=== PATIENT | male | born 1955 | race Caucasian/White ===

== ENCOUNTER 2017-05-21 06:28 | Inpatient (IN) | payer MEDICARE ==
[2017-05-21] VITALS (11 sets, daily range): BP systolic 125–171; BP diastolic 65–93
[~2017-05-21] VITALS: Ht 190.5 cm; Wt 73.5 kg
[2017-05-21] MEDS ORDERED: NOHOMEMEDICATIONS (06:40)
[2017-05-21 06:57] LABS: HEMOGLOBIN 7.6 gm/dL (14.0-18.0); MCH 28.2 pg (26.0-34.0); MPV 6.3 fl. (7.2-11.1)
[2017-05-21 06:59] LABS: HEMATOCRIT 24.5 % (42.0-52.0); MCHC 30.9 g/dL (28.0-37.0); MCV 91.5 fL (80.0-100.0); NUCLEATED RBCS 0 /100WBC; PLATELET COUNT* 238 thou/uL (150-400); RBC 2.67 mil/uL (4.50-6.00); RDW-CV 17.7 % (10.5-14.5); WBC 1.9 thou/uL (4.0-11.0)
[2017-05-21 07:12] LABS: ANION GAP 11 mmol/L (7-16); BUN 7 mg/dL (7-18); CALCIUM 8.1 mg/dL (8.5-10.1); CHLORIDE 105 mmol/L (98-107); CO2 25 mmol/L (21-32); CREATININE 0.9 mg/dL (0.6-1.3); GLUCOSE 91 mg/dL (70-99); POTASSIUM 4.2 mmol/L (3.5-5.1); SODIUM 141 mmol/L (136-145)
[2017-05-21 07:16] LABS: ALBUMIN 3.1 g/dL (3.4-5.0); ALKALINE PHOSPHATASE 63 U/L (46-116); LIPASE 420 U/L (73-393); MAGNESIUM 2.1 mg/dL (1.8-2.4); NT-PRO BRAIN NAT PEPTIDE 105 pg/mL (<300); SGOT 14 U/L (15-37); SGPT 16 U/L (30-65); TOTAL BILIRUBIN 0.3 mg/dL (<0.1-1.0); TOTAL PROTEIN 5.9 g/dL (6.4-8.2); TROPONIN-I LEVEL <0.06 ng/mL (<0.06)
[2017-05-21 07:25] LABS: URINE BILIRUBIN NEGATIVE (Negative); URINE BLOOD NEGATIVE (Negative); URINE CLARITY CLEAR; URINE COLOR YELLOW; URINE GLUCOSE-RANDOM NEGATIVE (Negative); URINE KETONES NEGATIVE (Negative); URINE LEUKOCYTES-REFLEX NEGATIVE (Negative); URINE NITRITE-REFLEX NEGATIVE (Negative); URINE PROTEIN NEGATIVE (Negative); URINE SPECIFIC GRAVITY <= 1.005 (1.005-1.030); URINE UROBILINOGEN 0.2 E.U./dl (0.2-1.0)
[2017-05-21 07:36] LABS: ABSOLUTE EOSINOPHILS 0.1 thou/uL (0.0-0.7); ABSOLUTE LYMPHOCYTES 0.5 thou/uL (0.8-5.3); ABSOLUTE MONOCYTES 0.1 thou/uL (0.0-1.2); ABSOLUTE NEUTROPHILS 1.3 thou/uL (1.6-8.1); PLATELET ESTIMATE ADEQUATE
[2017-05-21 07:37] LABS: ANISOCYTOSIS 1+; HYPOCHROMASIA 1+; OVALOCYTES 1+; POIKILOCYTOSIS 1+
--- NOTE | 2017-05-21 07:45 | NUR ---
PLACED ON PROTECTIVE/NEUTROPENIC PRECAUTIONS.
[2017-05-21 11:27] LABS: AMP/METHAMP Negative (Negative); BARBITURATES Negative (Negative); BENZODIAZEPINES Negative (Negative); COCAINE Negative (Negative); METHADONE Negative (Negative); OPIATES Negative (Negative); PCP Negative (Negative); THC Negative (Negative)
--- NOTE | 2017-05-21 11:27 | NUR ---
SHASHI CONNO[facility] [phone]
[2017-05-21 11:46] LABS: AMMONIA < 10 umol/L (11-32); CALCIUM 7.8 mg/dL (8.5-10.1); MAGNESIUM 1.9 mg/dL (1.8-2.4); PHOSPHORUS* 3.3 mg/dL (2.5-4.9)
--- NOTE | 2017-05-21 14:30 | 2DMMODE ---
[place] [address] 2 D/M-MODE ECHOCARDIOGRAM Name: TATIANA ROCA Room: [address] IN [facility]#: [id number] Admission: 05/21/17 Attend Phys: Hugh Ferraro, Discharge: Date of : 59 Date of Service: 05/21/17 1429 Report #: [id number] THIS REPORT FOR: //name// APPROVED REPORT Study performed: 05/21/2017 11:27:28 EXAM: Comprehensive 2D, Doppler, and color-flow Echocardiogram Patient Location: In-Patient Room #: [facility] Status: routine BSA: 2.07 HR: 90 bpm BP: 147/77 mmHg Rhythm: NSR Other Information Study Quality: Good Indications CVA/TIA Echo Enhancing Agent Indication: Rule out Shunt Agent(s) / Amount(s) Used: Agitated Saline 10 cc 2D Dimensions LVEF(%): 64.70 (>50%) IVSd: 10.51 (7-11mm) LVOT Diam: 25.06 (18-24mm) LVDd: 48.04 mm PWd: 9.46 (7-11mm) Ascending Ao: 34.99 (22-36mm) LVDs: 31.03 (25-40mm) Aortic Root: 35.81 mm Tan's LVEF: 64.70 % Volumes Left Atrial Volume (Systole) LA ESV Index: 18.70 mL/m2 Aortic Valve AoV Peak Guilherme.: 1.50 m/s AO Peak Gr.: 8.97 mmHg LVOT Max P.90 mmHg AO Mean Gr.: 4.86 mmHg LVOT Mean P.88 mmHg LVOT Max V: 0.99 m/s AO V2 VTI: 27.10 cm LVOT Mean V: 0.63 m/[place] [address] 2 D/M-MODE ECHOCARDIOGRAM Name: TATIANA ROCA Room: [address] IN [facility]#: [id number] Admission: 05/21/17 Attend Phys: Hugh Ferraro, Discharge: Date of : 59 Date of Service: 05/21/17 1429 Report #: [id number] ZACHERY (VTI): 3.74 cm2 LVOT V1 VTI: 20.55 cm Mitral Valve E/A Ratio: 0.85 MV Decel. Time: 178.19 ms MV E Max Guilherme.: 0.82 m/s MV PHT: 51.67 ms MVA (PHT): 4.26 cm2 TDI E/Lateral E': 6.83 E/Medial E': 5.13 Medial E' Guilherme.: 0.16 m/s Lateral E' Guilherme.: 0.12 m/s Pulmonary Valve PV Peak Guilherme.: 0.90 m/s PV Peak Gr.: 3.27 mmHg Left Ventricle The left ventricle is normal size. There is normal LV segmental wall motion. There is normal left ventricular wall thickness. Left ventricular systolic function is normal. The left ventricular ejection fraction is within the normal range. LVEF is 55-60%. Grade I - abnormal relaxation pattern. Right Ventricle The right ventricle is normal size. The right ventricular systolic function is normal. Atria The left atrium size is normal. Interatrial septum is intact without evidence of ASD or PFO. The right atrium size is normal. Aortic Valve The aortic valve is normal in structure. No aortic regurgitation is present. There is no aortic valvular stenosis. Mitral Valve The mitral valve is normal in structure. There is no mitral valve regurgitation noted. No evidence of mitral valve stenosis. Tricuspid Valve The tricuspid valve is normal in structure. Trace tricuspid regurgitation. Unable to assess PA pressure. Pulmonic Valve The pulmonary valve is normal in structure. [place] [address] 2 D/M-MODE ECHOCARDIOGRAM Name: TATIANA ROCA Room: [address] IN [facility]#: [id number] Admission: 05/21/17 Attend Phys: Hugh Ferraro, Discharge: Date of : 59 Date of Service: 05/21/17 1429 Report #: [id number] valvular regurgitation. Great Vessels The aortic root is normal in size. IVC is normal in size and collapses with >50% inspiration Pericardium There is no pericardial effusion. <Conclusion> LVEF is 55-60%. Interatrial septum is intact without evidence of ASD or PFO. <ELECTRONICALLY SIGNED> By: Noe Pena MD, [facility] 05/21/17 1429 1429 1429 Noe Pena MD, FAC /INF
--- NOTE | 2017-05-21 15:19 | EKG ---
[place] [address] ELECTROCARDIOGRAM REPORT Name: TATIANA ROCA Room: [address] ADM IN [facility]#: [id number] Admission: 05/21/17 Attend Phys: Hugh Ferraro MD Discharge: Date of : 59 Report #: [id number] THIS REPORT FOR: //name// [facility] ED Test Date: 2017-05-21 Test Time: 06:43:41 Pat Name: TATIANA ROCA Department: Room: [facility] Gender: M Cabinet Finisher: ZACH : 1955 Requested By: Zahira Baez Order Number: [id number] MD: Noe Pena Measurements Intervals Cardale Rate: 88 P: 51 VT: 185 QRS: -21 QRSD: 94 T: 6 QT: 375 QTc: 454 Interpretive Statements Sinus rhythm Borderline left axis deviation Baseline wander in lead(s) V5 No previous ECG available for comparison Electronically Signed On 05-21-2017 15:19:18 CDT by Noe Pena [email or web address] <ELECTRONICALLY SIGNED> By: Noe Pena MD, [facility] 05/21/17 1519 [phone] Noe Pena MD, [facility] /EPI
--- NOTE | 2017-05-21 16:43 | NUR ---
RECEIVED PT FROM ER. PT A/O X'S 4. PT DROWSY. NIH CHARTED. CIWA CHARTED 8. PRN ATIVAN ADMINISTERD. PT IMPULSIVE. PT TAKING OFF GOWN, MONITOR CORDS, TOOK OUT [address]. [address] FOR RESTRAINTS RECEIVED ORDER FOR 1:1. GROCERY SPECIALIST SITTING AT BEDSIDE. VSS. TEMP 99.0. 1ST DEGREE AV BLOCK. PT PLACED IN NEUTROPENIC PRECAUTIONS FOR WBC OF 1.9. SPOKE TO SON MOHSEN WHO EXPRESSED CONCERN FOR PT. EXPRESSED PT HAS HAD INSURANCE FOR MEDICATIONS HOWEVER NON-COMPLIANT. PT REPORTS PT IS SUPPOSED TO TAKE SEVERAL MEDICATIONS BUT DOES NOT AND IS UNAWARE OF NAMES OR PT'S PHARMACY.
--- NOTE | 2017-05-21 17:56 | NUR ---
PT INCONTINENT 3-4 TIMES URINE. PT HELPED TO BSC 1 TIME PT WEAK ON LEFT SIDE UP WITH 2. PT UNSTEADY. CIWAS CHARTED. SENT FOR RECORDS AT [facility] - HAVE NOT RECEIVED FAX. TELE PSYCH CONSULT NOT YET CALLED PT DROWSY, SPEECH IS SLURRED, WEAK, PT UNABLE TO KEEP EYES OPEN AND HOLD CONVERSATION. TECHNICAL MAINTENANCE TECHNICIAN IN ROOM. PT CONTINUES TO PICK AND CORDS.
[2017-05-22] VITALS (20 sets, daily range): BP systolic 132–188; BP diastolic 75–114
--- NOTE | 2017-05-22 02:44 | NUR ---
MITTEN PLACED ON RIGHT HAND AT 2200 DUE TO AGGRESSIVE TUGGING ON WYNNE CATHETER. MITTEN IS NOT TIED DOWN. PT'S IV IN RIGHT AC NOT IN PLACE, DC'D. NEW IV STARTED IN LEFT FOREARM, 20#, NO DIFFICULTY. IVF REMAIN INFUSING
[2017-05-22 03:55] LABS: ABSOLUTE EOSINOPHILS 0.1 thou/uL (0.0-0.7); ABSOLUTE LYMPHOCYTES 0.6 thou/uL (0.8-5.3); ABSOLUTE MONOCYTES 0.5 thou/uL (0.0-1.2); ABSOLUTE NEUTROPHILS 2.9 thou/uL (1.6-8.1); BASOPHILS 0.9 %; EOSINOPHILS 2.8 %; HEMATOCRIT 26.9 % (42.0-52.0); HEMOGLOBIN 8.2 gm/dL (14.0-18.0); LYMPHOCYTES 13.8 %; MCH 27.8 pg (26.0-34.0); MCHC 30.6 g/dL (28.0-37.0); MCV 90.7 fL (80.0-100.0); MONOCYTES 12.8 %; MPV 6.7 fl. (7.2-11.1); NUCLEATED RBCS 0 /100WBC; PLATELET COUNT* 266 thou/uL (150-400); POLYS 69.7 %; RBC 2.96 mil/uL (4.50-6.00); RDW-CV 17.9 % (10.5-14.5); WBC 4.2 thou/uL (4.0-11.0)
[2017-05-22 04:19] LABS: CALCIUM 8.5 mg/dL (8.5-10.1); CREATININE 0.9 mg/dL (0.6-1.3); POTASSIUM 3.4 mmol/L (3.5-5.1)
[2017-05-22 04:42] LABS: CHOLESTEROL 165 mg/dL (<200); HDL CHOLESTEROL 90 mg/dL (>40); LDL CHOLESTEROL 63 mg/dL (<100); TC:HDL 1.8 Ratio (Not establshd); TRIGLYCERIDE 62 mg/dL (<150); VLDL 12 mg/dL (<40)
[2017-05-22 04:47] LABS: SERUM ASSESSMENT Clear
--- NOTE | 2017-05-22 05:10 | NUR ---
PT. PROGRESSING TOWARDS GOALS. PT. HAS SLEPT WELL FOR 7 HOURS. GEODON GIVEN PER ONE TIME ORDER DUE TO COMBATIVENESS AND RESTLESSNESS BEGINNING SHIFT. REPEATEDLY TOLD THIS RN THAT HE WAS GETTING OUT OF BED AND GOING HOME. REMAINS DROWSY AT THIS TIME, THIS RN HAS BEEN AT BEDSIDE THROUGHOUT SHIFT. WILL CONTINUE TO MONITOR.
[2017-05-22 05:11] LABS: GLYCOHEMOGLOBIN (HGB A1C) 4.3 % (4.8-5.6)
[2017-05-22 05:35] LABS: MAGNESIUM 2.2 mg/dL (1.8-2.4); PHOSPHORUS* 3.9 mg/dL (2.5-4.9)
--- NOTE | 2017-05-22 10:15 | NUR ---
PT ADMITTIED YESTERDAY WITH POSSIBLE CVA, ALCOHOL ABUSE. PT CONFUSED AND AGITATED YESTERDAY. NO FAMILY HERE AT THIS TIME. CASE MGT WILL CONTINUE TO FOLLOW.
--- NOTE | 2017-05-22 10:19 | NUR ---
PT LETHARGIC THIS AM. PT IS NOT OPENING EYES. PT ABLE TO FOLLOW DIRECTIONS. PT MOVING RIGHT LEG, RIGHT ARM. 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 PT UNABLE TO MOVE LEFT LEG. NO RESPONSE TO SHARP PRICK TO LEFT LEG. NEUROLOGY CALLED AND RECEIVED ORDER FOR MRI NON-CONTRAST OF BRAIN IF OKAY WITH DR ARANGO. DR KEBEDE CALLED AND OKAY WITH MRI. POTASSIUM BEING REPLACED. WILL CONTINUE PLAN OF CARE.
--- NOTE | 2017-05-22 15:03 | NUR ---
THIS AM LEFT A MESSAGE WITH PT'S SON MOHSEN TO FILL OUT MRI QUESTIONAIR. NEURO SAW PT PRIOR TO SON RETURNING CALL- RECEIVED ORDER FOR CT FOR STROKE AND TO OBTAIN MRI WHEN SON RETURNS PHONE CALL. SON MOHSEN CAME TO VISIT PT AND QUESTIONAIRE FILLED OUT. PT CONTINUES TO BE LETHARGIC, NOT OPENING EYES, MOVING RIGHT ARM AND LEG, NO MOVEMENT OR RESPONSE TO PAIN IN LEFT LEG. NEUROLOGY AWARE OF CURRENT CONDITION. WILL CONTINUE PLAN OF CARE. POTASSIUM REPLACED AND CURRENTLY 4.2. PT SCHEDULED FOR VIDEO SWALLOW TODAY. RE-SCHEDULED FOR 05/23 PT LETHARGIC AND UNABLE TO DO TEST. ST NOTIFIED. PT HAS NOT HAD PO MEDICATIONS DUE TO NPO PER ST, AND PT'S LETHARGIC.
--- NOTE | 2017-05-22 16:26 | NUR ---
NEUROLOGY NOTIFIED OF CT. RECEIVED ORDERS TO AWAIT MRI RESULTS. SON HIMA CAME TO VISIT. TO HIS KNOWLEDGE PT DOES NOT HAVE PCP.
--- NOTE | 2017-05-22 17:56 | NUR ---
MRI RESULTS CALLED TO DR RAMIREZ. PER DR RAMIREZ NO ADDITIONAL INTEREVENTIONS AT THIS TIME. DR RAMIREZ TO CALL FAMILY WITH UPDATE.
--- NOTE | 2017-05-22 19:25 | CON ---
[address] [address] CONSULTATION Name: TATIANA ROCA Room: [address] IN [facility]#: [id number] Admission: 05/21/17 Attend Phys: Hugh Ferraro MD Discharge: Date of : 59 Report #: [id number] THIS REPORT FOR: //name// CC: Hugh Ferraro [facility] physician/PCP HISTORY OF PRESENT ILLNESS: This is a 61-year-old male patient who was evaluated by me because this patient was noticed to be weak on the left side. We are trying to reach the family and we have not been able to reach the family. History is somewhat confusing, but as I understand from the nurses, this patient had a stroke in the past which affected the left side of the body, but they indicated that the patient was still able to move the left side, but then did notice that the patient has not been able to move the left side at all. The patient is very drowsy and it is very difficult to evaluate this patient. There is also a question whether the weakness is on the left side or the right side from the record. REVIEW OF SYSTEMS: From the record and it would look like this patient has been feeling weak for 2 weeks. The Emergency Room record indicates that he had some weakness on the left side where other records indicate weakness on the right side. The patient has by records history of atrial fibrillation as well as congestive heart failure. We are trying to get hold of this patient's son and we have been unable to do that. I talked to the night nurses and I also talked to the day nurses and this patient's review of systems is also positive for alcoholism that is the patient was withdrawing. He needed some sedative last night. I carried out 14-point review of system and the patient's 14-point review of system is positive and contributory only for the above thing. PAST MEDICAL HISTORY: Positive for CVA, alcoholism. FAMILY HISTORY: Unavailable. SOCIAL HISTORY: He has a history of smoking and drinking. PHYSICAL EXAMINATION: NEUROLOGIC: On my examination, this patient did not do anything. He barely responds to painful or verbal stimuli. According to the nurses, he was not moving the left side. On my examination, he did not move anything. LUNGS: His respiration looks okay. VITAL SIGNS: Indicate blood pressure of 170/89, respirations 12, pulse is 101, temperature is 98.3. IMPRESSION: This patient is very difficult to evaluate. He does have a prior history of cerebrovascular accident and I do not know whether he had another cerebrovascular accident or not. We wanted to do an MRI in this patient, but we cannot get hold of the patient's son to fill up the MRI questioner. Therefore, we could not do the MRI in this patient. I thought about [place] [address] CONSULTATION Name: TATIANA ROCA Room: [address] IN [facility]#: [id number] Admission: 05/21/17 Attend Phys: Hugh Ferraro MD Discharge: Date of : 59 Report #: [id number] protocol to see if any stroke is there and is salvageable. He did have another CT angiogram yesterday, but his GFR was normal and therefore, I went ahead and did a CT stroke protocol which showed old stroke and some stenosis, but nothing which is salvageable. I am not even sure that is the etiology of the patient's symptoms. RECOMMENDATIONS: 1. We will go ahead and give him some fluids. 2. We will continue to get hold of the patient's son. 3. We might do an MRI if we can get hold of the patient's son. It will be desirable to do the MRI in this patient. If I am able to talk to the patient's son, I will dictate an addendum to this. I have not been able to reach this patient's son or any relative. I have asked the nurses to contact them. But I have reviewed this patient's records and the patient had another stroke. He has bilateral strokes in the frontal area and the situation is difficult. We will like family to decide what further treatment is but I need better history to determine the further treatment in this patient. This patient was never a candidate for any intervention because his time of onset is not clear.furthermore perfusion did not demonstrate any Pneumbra or anything for which thrombectomy can be done. Therefore he was neither a candidate for TPA nor for any intervention. We will try to continue to make attempts to contact some family member. Thank you very much for this referral. <ELECTRONICALLY SIGNED> By: Cam Vu MD 05/22/171924 1401 18Cam Vu MD /susana
[2017-05-23] VITALS (10 sets, daily range): BP systolic 130–165; BP diastolic 80–108
[2017-05-23 03:49] LABS: ABSOLUTE LYMPHOCYTES 0.6 thou/uL (0.8-5.3); ABSOLUTE MONOCYTES 0.4 thou/uL (0.0-1.2); ABSOLUTE NEUTROPHILS 2.3 thou/uL (1.6-8.1); BASOPHILS 0.7 %; EOSINOPHILS 1.4 %; HEMATOCRIT 31.1 % (42.0-52.0); HEMOGLOBIN 9.5 gm/dL (14.0-18.0); LYMPHOCYTES 17.2 %; MCH 27.3 pg (26.0-34.0); MCHC 30.4 g/dL (28.0-37.0); MCV 89.7 fL (80.0-100.0); MONOCYTES 11.8 %; MPV 6.8 fl. (7.2-11.1); NUCLEATED RBCS 0 /100WBC; PLATELET COUNT* 304 thou/uL (150-400); POLYS 68.9 %; RBC 3.47 mil/uL (4.50-6.00); RDW-CV 18.2 % (10.5-14.5); WBC 3.3 thou/uL (4.0-11.0)
[2017-05-23 04:19] LABS: ALBUMIN 3.4 g/dL (3.4-5.0); CALCIUM 8.3 mg/dL (8.5-10.1); CREATININE 0.9 mg/dL (0.6-1.3); PHOSPHORUS* 4.2 mg/dL (2.5-4.9); POTASSIUM 3.4 mmol/L (3.5-5.1); TOTAL BILIRUBIN 0.9 mg/dL (<0.1-1.0); TOTAL PROTEIN 6.4 g/dL (6.4-8.2)
--- NOTE | 2017-05-23 06:58 | NUR ---
PATIENT NOT PROGRESSING TOWARDS GOALS. SLEPT MOST OF THE NIGHT. REMAINS WITH MITTEN ON RIGHT HAND. PT UNABLE TO KEEP EYES OPEN. DOES ANSWER QUESTIONS APPROPRIATE VERY DIFFICULT TO UNDERSTANDS SPEAKS VERY LOW. GIVE TIME TO RESPOND. PT STILL DOES NOT HAVE MOVEMENT ON LEFT ARM OR LEG. RIGHT ARM DRIFTS. CIWA SCORE LOW. PT BLOOD PRESSURE ELEVATED. HAS SWALLOW STUDY TODAY. HOPING TO START HIM ON HIS BP MEDICAITONS. URINE OUPUT ADEQUATE. PT HAD A BRIEF MOMENT WHERE HIS HR GOT UP TO THE 150'S BUT DID NOT SUSTAIN. WILL CONTINUE TO MONITOR CLOSELY.
--- NOTE | 2017-05-23 11:29 | NUR ---
RECEIVED REPORT FROM ABRAM, RN. ASSESSMENT CHARTED. AFEBRILE. NIH IS 13. PT LETHARGIC. SPEECH SWALLOW EVAL TODAY. POTASSIUM REPLACED. FLUIDS INFUSING. OKAY TO GO TO TELE IF OKAY WITH DR RAMIREZ. WILL CONTINUE TO MONITOR.
[2017-05-24] VITALS (11 sets, daily range): BP systolic 16–162; BP diastolic 48–100
--- NOTE | 2017-05-24 10:45 | NUR ---
Per nursing, pt is more alert today. Tried talking to pt, he answered a few y/n questions but unable to carry on a conversation. No family here at this time.
--- NOTE | 2017-05-24 19:12 | NUR ---
RECIEVED REPORT FROM FRANK WHITFIELD IN ICU @ 1837- PT TRANSFERED TO ROOM 224 VIA BED PER TECH, NOTED TO ARRIVE AT 1900- VSS AT 98.5 18 138/77 68 985 ON 2L- IV NOTED TO LEFT HAND INTACT, IVF RESTARTED ADN INFUSING PRESCIBED-REHABILITATION CLERK PLACED, TRACING SR- REPORT GIVEN TO FRANK ANDERSEN- ALL NEEDS MET AT THIS TIME-WCTM
[2017-05-25] VITALS: BP 114/64
[2017-05-25 04:00] VITALS: BP 161/78
--- NOTE | 2017-05-25 04:29 | NUR ---
A&O X4 CALM COOPERITVE. SR ON THE MONITOR. MAX ASSIST TO CHAIR. PT ON PUREED DIET. CURRETLY TAKES PILLS CRUSHED. VITALS WNL. SEE MAR. SEE CHART. FALL PRECAUTIONS IN PLACE. HOURLY ROUNDING FOR SAFETY.
[2017-05-25 11:33] VITALS: BP 135/87
--- NOTE | 2017-05-25 13:07 | TEE ---
[place] [address] TRANSESOPHAGEAL ECHOCARDIOGRAM Name: TATIANA ROCA Room: [address] IN [facility]#: [id number] Admission: 05/21/17 Attend Phys: Hugh Ferraro, Discharge: Date of : 59 Date of Service: 05/25/17 1307 Report #: [id number] THIS REPORT FOR: //name// APPROVED REPORT Study performed: 05/24/2017 15:22:44 EXAM: Transesophageal Echocardiogram Patient Location: In-Patient Room #: 001 Status: routine BSA: 1.99 HR: 76 bpm BP: 130/73 mmHg Rhythm: NSR Other Information Study Quality: Good Indications CVA/TIA Echo Enhancing Agent Indication: Rule out Shunt Agent(s) / Amount(s) Used: Agitated Saline 20 cc Procedure After obtaining informed consent, patient underwent transesophageal echo in the Bedside. Type of Sedation : Conscious Sedation Sedation was administered by Evangelina Neumann. Sedation start time: 1529 Case end Time: 1546 Sedation was achieved intravenously with: Versed (5) Fentanyl (50) Transesophageal probe was inserted and advanced into esophagus without difficulty by Noe Pena MD, FACC. Echo enhancement indication: R/O Septal defect. Echo enhancement agent administered: Agitated Saline The NATHAN was performed without complications. Throughout the procedure, the blood pressure, pulse oximetry, cardiac rhythm, and rate were monitored. The patient tolerated the procedure without adverse effects. Recovery from conscious sedation was uneventful and [place] [address] TRANSESOPHAGEAL ECHOCARDIOGRAM Name: TATIANA ROCA Room: [address]#: [id number] Admission: 05/21/17 Attend Phys: Hugh Ferraro, Discharge: Date of : 59 Date of Service: 05/25/17 1307 Report #: [id number] Left Ventricle The left ventricle is normal size. There is normal LV segmental wall motion. There is normal left ventricular wall thickness. Left ventricular systolic function is normal. The left ventricular ejection fraction is within the normal range. LVEF is 60-65%. Right Ventricle The right ventricle is normal size. The right ventricular systolic function is normal. Atria No thrombus is visualized in the left atrium or appendage. The left atrium size is normal. Interatrial septum is intact without evidence of ASD or PFO. The right atrium size is normal. Aortic Valve The aortic valve is normal in structure. No aortic regurgitation is present. There is no aortic valvular stenosis. Mitral Valve systolic bowing of the anterior leaflet was noted but no evidence of prolapse Trace mitral regurgitation. No evidence of mitral valve stenosis. Tricuspid Valve The tricuspid valve is normal in structure. Trace tricuspid regurgitation. Pulmonic Valve The pulmonary valve is normal in structure. There is no pulmonic valvular regurgitation. Great Vessels The aortic root is normal in size. Pericardium There is no pericardial effusion. <Conclusion> LVEF is 60-65%. Interatrial septum is intact without evidence of [place] [address] TRANSESOPHAGEAL ECHOCARDIOGRAM Name: TATIANA ROCA Room: [address] IN [facility]#: [id number] Admission: 05/21/17 Attend Phys: Hugh Ferraro, Discharge: Date of : 59 Date of Service: 05/25/171306 Report #: [id number] No thrombus is visualized in the left atrium or appendage. The left atrium size is normal. <ELECTRONICALLY SIGNED> By: Noe Pena MD, FACC 05/25/171306 06 06 Noe Pena MD, FACC /INF
[2017-05-25 16:30] VITALS: BP 123/73
--- NOTE | 2017-05-25 17:07 | NUR ---
ASSUMED PT CARE AT 0700 PT IS ALERT AND ORIENTED X 4 PT HAS FACIAL DROOPING AND SLURRED SPEECH PT ANSWERS QUESTIONS AND FOLLOWS COMMANDS APPROPRIATELY, PT IS UP WITH MAX ASSIST X 2 TO CHAIR, PT HAS WYNNE, PT IS ON PUREED HONEY THICK LIQUIDS PT DIET HAD BEEN CHANGED TO NPO AND NOT CHANGED BACK CALLED DR EARL AFTER SPEAKING WITH SPEECH ABOUT PT DIET ORDERS AND OBTAINED ORDER, PT IS A Q 2 TURN, WILL CONTINUE TO MONITOR
--- NOTE | 2017-05-25 18:10 | NUR ---
RECIEVED CONSULT FOR POSSIBLE REHAB ADMISSION. CONSULT HAS BEEN ACKNOWLEDGED BY SUPERIOR COURT CLERK AND DR. WANG. PT WITH CVA. HAS BEEN CONFUSED AND UNABLE TO FOLLOW COMMANDS. NOW DOING A LITTLE BETTER WITH THERAPIES. WILL FOLLOW ALONG WITH PT TO SEE HOW HE PROGRESSES AND IF ABLE TO TOLERATE 3 HOURS OF THERAPY TO QUALIFY FOR ACUTE REHAB. THANK YOU FOR THIS REFERRAL.
[2017-05-25 20:00] VITALS: BP 139/75
[2017-05-26] VITALS (7 sets, daily range): BP systolic 95–157; BP diastolic 56–92
--- NOTE | 2017-05-26 02:56 | NUR ---
PT ALERT ORIENTED SLOW RESPONCE. NIH 6. CIWA 2. LEFT SIDE EFFECTED FROM CVA. L ARM CONTRACTED. L LEG WITH SOME RESISTANCE TO GRAVITY. PT ON PUREED HONEY THICK. TAKING PILLS CRUSHED APPLE SAUCE. TELEMETRY SHOWS SR. O2 AT 2 LITERS NC. WYNNE FOR RETENTION DRAINING DK YELLOW. DENIES PAIN. WILL CONTINUE TO MONITOR.
[2017-05-26 05:49] LABS: HEMATOCRIT 27.9 % (42.0-52.0); HEMOGLOBIN 8.9 gm/dL (14.0-18.0); MCH 27.5 pg (26.0-34.0); MCHC 31.7 g/dL (28.0-37.0); MCV 86.7 fL (80.0-100.0); MPV 7.1 fl. (7.2-11.1); RBC 3.22 mil/uL (4.50-6.00); RDW-CV 18.1 % (10.5-14.5); WBC 2.5 thou/uL (4.0-11.0)
[2017-05-26 06:17] LABS: CALCIUM 8.6 mg/dL (8.5-10.1); CREATININE 0.9 mg/dL (0.6-1.3); MAGNESIUM 2.1 mg/dL (1.8-2.4); POTASSIUM 3.6 mmol/L (3.5-5.1)
--- NOTE | 2017-05-26 15:10 | NUR ---
ASSUMED PT CARE AT 0700 PT IS ALERT AND ORIENTED X 4 PT DENEIS PAIN OR SOA ON 2L/NC PT ON MULTIPLE OCCASSIONS REMOVED HEART MONITOR AND OXYGEN REEDUCATED PT THAT HIS HEART NEEDS TO BE MONITORED AND WITHOUT OXYGEN HE MAY HAVE TROUBLE BREATHING, PT IS SR PN THE MONITOR, PT IS UP WITH MAXIMUM ASSIST X 2-3 PT WAS IN CHAIR THIS SHIFT, PT IS TURNED Q 2 HOURS, PT IS ON HONEY THICK LIQUIDS AND PUREED DIET PT PILLS ARE CRUSHED IN APPLESAUCE, WILL CONTINUE TO MONITOR
--- NOTE | 2017-05-27 02:18 | NUR ---
PT ALERT ORIETNED X4. NIH 6 AND CIWA 2 Q SHIFT. DENIES PAIN. TELEMETRY SHOWS SR. TAKING PILLS CRUSHED IN APPLE SAUCE. POOR PO INTAKE. WYNNE IN PLACE FOR URINARY RETENTION. R AC IV OUT AT SHIFT CHG. NEW IV PLACED IN R FA. WILL CONTINUE TO MONITOR.
[2017-05-27 04:01] VITALS: BP 132/75
[2017-05-27 04:51] LABS: HEMATOCRIT 28.4 % (42.0-52.0); HEMOGLOBIN 8.8 gm/dL (14.0-18.0); MCH 26.9 pg (26.0-34.0); MCHC 31.1 g/dL (28.0-37.0); MCV 86.4 fL (80.0-100.0); MPV 7.1 fl. (7.2-11.1); RBC 3.29 mil/uL (4.50-6.00); RDW-CV 17.9 % (10.5-14.5); WBC 2.5 thou/uL (4.0-11.0)
[2017-05-27 05:13] LABS: CALCIUM 8.7 mg/dL (8.5-10.1); CREATININE 0.8 mg/dL (0.6-1.3); POTASSIUM 3.5 mmol/L (3.5-5.1); TOTAL BILIRUBIN 0.5 mg/dL (<0.1-1.0); TOTAL PROTEIN 5.8 g/dL (6.4-8.2)
[2017-05-27 09:15] VITALS: BP 137/86
[2017-05-27 12:02] VITALS: BP 121/77
[2017-05-27 16:00] VITALS: BP 126/76
--- NOTE | 2017-05-27 19:32 | NUR ---
ASSUMED PT CARE AT 0730, FULL ASSESMENT DONE CHARTED. PT A/O X4, HAS SOME DISPHAGIA, LEFT ARM FLACID, LEFT LEG WEAK, NIH DONE CHARTED. PT UP TO CHAIR WITH PT THIS AM, IS MAX ASSIST. TURN Q2, DENIES PAIN, PT ASKING ABOUT GOING TO REHAB. VSS, SR ON THE MONITOR. FALL PRECATUIONS IN PLACE. CALL LIGHT IN REACH, PT USES IT APPROPRIATLY. REPORT GIVEN TO FRANK BERRY
[2017-05-27 20:00] VITALS: BP 151/80
[2017-05-28 00:03] VITALS: BP 122/56
[2017-05-28 04:00] VITALS: BP 131/92
--- NOTE | 2017-05-28 05:35 | NUR ---
PT CARE ASSUMED AFTER REPORT. ASSESSMENT COMPLETE. SR ON MNITOR. PT IMPULSIVE. REMOVES TELE MONITOR FREQUENTLT. NIH SCORE 9. LUE CONTRACTED. UNABLE TO LIFT OR HOLD LLE UP. FACIAL DROOP WITH SLURRED SPEECH. CIWA 1. WYNNE TO DD. DENIES PAIN. CALL LIGHT IN REACH. BED IN LOWEST POSITION. FALL PRECAUTIONS IN PLACE INCLUDING BED ALARM. SEIZURE PADS IN PLACE. SLOW TO PROGRESS TOWARDS GOALS.
[2017-05-28 07:30] VITALS: BP 141/75
--- NOTE | 2017-05-28 10:42 | NUR ---
VSS, ASSUMED CARE IN THE AM, ASSESSMENT PERFORMED AND CHARTED, FALL PRECAUTIONS IN PLACE AND CALL LIGHT IN REACH, PT IS A&O2-3, ON RA AND IS TRACING SR ON THE MONITOR, PT HAS LEFTSIDE WEAKNESS AND DENIES ANY PAIN AND IS ON RA, PT WAS EDUCATED ON THE SCD US AND WTILL DIDNT WANT TO USE THEM AT THIS TIME, PT GOAL IS TO SIT UP IN CHAIR AND WORK WITH PT/OT, PT ALSO NEED TO MEET WITH REHAB FOR POSSIBLE WORK UP,
--- NOTE | 2017-05-28 11:52 | NUR ---
MET WITH PT TO DISCUSS HOME SITUATION/DC PLANNING. PT STATES HE LIVES IN A MOTEL, THINKS THE WELCOME INN HERE IN [place]. ADDRESS ON FACE SHEET IS HIS MOTHER'S BUT HE ASKED THAT 'WE LEAVE HER ALONE.' HE STATES HE WAS INDEPENDENT AND ACTIVE. USED A CANE. HE DIDN'T COOK BUT WALKED TO GET FOOD OR ATE WITH OTHERS IN THE [place]. HE STATES HIS SON MOHSEN IS HELPFUL TO HIM AND THAT HE MAY BE ABLE TO STAY WITH HIM AT DC. ASKED IF PT HAD A DPOA OR DR, HE DENIED HAVING EITHER. HE WOULD LIKE TO COMPLETE A DPOA AND WANTS HIS SON/HIMA BUT DOESN'T KNOW HIS INFO. CALL PLACED TO MOHSEN ON BOTH NUMBERS IN CHART, NO ANSWER, LEFT MESSAGE. TALKED WITH PT ABOUT GOING TO REHAB, HE IS INTERESTED AND WANTS TO GO TO GET BETTER. AWAIT [facility] TO [facility] AND GIVE RECOMMENDATION. DISCUSSED OTHER REHABS IN THE AREA WITH PT IF [facility] ISN'T AN OPTION D/T BED AVAILABILITY. ENCOURAGED PT TO WORK [facility] THERAPY. AWARE PT HAS DC ORDERS FOR TODAY
[2017-05-28 12:07] VITALS: BP 133/74
--- NOTE | 2017-05-28 13:11 | NUR ---
Nutrition: Pt assessed for LOS. Admitted with CVA. ETOHism, COPD, dysphagia/aspiration. Pureed/Honey thickened diet. Albumin 3. Wt: 162#. Will likely go to Rehab. Pt appears at mild nutrition risk. Poor nutrition can be expected with ETOHism. Continue MVI, thiamine.
--- NOTE | 2017-05-28 13:59 | NUR ---
PT HAS BEEN APPROVED FOR INPATIENT REHAB.
[2017-05-28] MEDS ORDERED: ASPIR 8181 M1 PO (14:33)
[2017-05-28] MEDS ORDERED: LIPITOR 40 MG T40 M1 PO (14:34)
[2017-05-28] MEDS ORDERED: PLAVIX 75 MG TA75 M1 PO (14:35)
[2017-05-28] MEDS ORDERED: CARVEDILOL3.125 MG PO (14:35)
[2017-05-28] MEDS ORDERED: VITAMIN B-1100 M1 PO (14:37)
[2017-05-28] MEDS ORDERED: VITAFOL-OB+DHA1 EACH PO (14:38)
[2017-05-28 14:43] VITALS: BP 133/74
[2017-05-28 15:15] VITALS: BP 133/70
--- NOTE | 2017-05-28 16:17 | NUR ---
VSS, RECIEVED D/C ORDERS, FILLED OUT D/C INSTRUCTIONS AND PAPERS, TOOK OUT IV AND TELE MONITOR, PT DENIES ANY QUESTIONS AND CONCERNS, PT WAS TAKEN TO REHAB, ALL BELONGINGS GATHERED AND PLACED WITH PT, CALL REPOTE TO REHAB NURSE, SHE DENIES ANY QUESTIONS OR CONCERNS AT TIME OF REPORT, HOURLY ROUNDS COMPLETED,
== END 2017-05-28 16:14 | DRG 64 ==
LOC: M.ERS 06:28 → M.TBA-ER 09:25 → M.ICU 09:25 → M.2W 05-24 19:02
PROVIDERS: Emergency Medicine; Family Medicine; Personal Emergency Response Attendant; ADMIT Internal Medicine
DX: I63.9 Cerebral infarction, unspecified (principal); G93.40 Encephalopathy, unspecified; J69.0 Pneumonitis due to inhalation of food and vomit; K85.90 Acute pancreatitis without necrosis or infection, unspecified; G81.94 Hemiplegia, unspecified affecting left nondominant side; J44.9 Chronic obstructive pulmonary disease, unspecified; F10.20 Alcohol dependence, uncomplicated; Y90.9 Presence of alcohol in blood, level not specified; D75.9 Disease of blood and blood-forming organs, unspecified; D64.9 Anemia, unspecified; D70.9 Neutropenia, unspecified; R13.10 Dysphagia, unspecified; Z23 Encounter for immunization

== ENCOUNTER 2017-05-28 13:53 | Inpatient (IN) | payer MEDICARE ==
[~2017-05-28] VITALS: Ht 190.5 cm; Wt 71.7 kg
[~2017-05-28 13:53] MED LIST: NOHOMEMEDICATIONS
[2017-05-28] MEDS ORDERED: ASPIR 8181 M1 PO (14:33)
[2017-05-28] MEDS ORDERED: LIPITOR 40 MG T40 M1 PO (14:34)
[2017-05-28] MEDS ORDERED: PLAVIX 75 MG TA75 M1 PO (14:35)
[2017-05-28] MEDS ORDERED: CARVEDILOL3.125 MG PO (14:35)
[2017-05-28] MEDS ORDERED: VITAMIN B-1100 M1 PO (14:37)
[2017-05-28] MEDS ORDERED: VITAFOL-OB+DHA1 EACH PO (14:38)
[2017-05-28 16:36] VITALS: BP 126/87
--- NOTE | 2017-05-28 19:28 | NUR ---
62 YEAR OLD MALE PT ADMITTED TO ROOM 325 WITH A RECENT CVA AND LEFT HEMIPARESIS. PT IS A/O X4 WITH MILD APHASIA. ADMISSION PROCESS COMPLETED. PT TRANSFERS WITH MOD ASSIST OF TWO, GAIT BELT AND WALKER. FALL PRECAUTIONS AND HOURLY ROUNDING IMPLEMENTED, NO IMPULSIVE BEHAVIOR EXHIBITED THUS FAR.
[2017-05-28 20:05] VITALS: BP 142/85
[2017-05-29 04:41] LABS: HEMATOCRIT 27.2 % (42.0-52.0); HEMOGLOBIN 8.4 gm/dL (14.0-18.0); MCH 26.7 pg (26.0-34.0); MPV 7.1 fl. (7.2-11.1); RBC 3.16 mil/uL (4.50-6.00); RDW-CV 18.2 % (10.5-14.5); WBC 2.5 thou/uL (4.0-11.0)
[2017-05-29 04:58] LABS: CALCIUM 8.5 mg/dL (8.5-10.1); CREATININE 0.9 mg/dL (0.6-1.3); POTASSIUM 3.2 mmol/L (3.5-5.1)
--- NOTE | 2017-05-29 07:00 | NUR ---
ASSUMED CARES AT 1920. PT ALERT AND ORIENTED. PLEASANT. CVA WITH LEFT HEMIPARESIS. DYSPHAGIA. SLIGHT SLURRING OF SPEECH AND SPEAKS IN SOFT TONE. LEFT ARM AND LEG VERY WEAK. TAKES PILLS CRUSHED IN APPLESAUCE. DENIED ANY PAIN. HE IS A MAX ASSIST X 2 PERSON. GAIT BELT. STAND AND PIVOT. 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 DID NOT VOID MOST OF NIGHT BUT THEN WAS FINALLY ABLE TO USE URINAL X 1. PVR CHECK SHOWED NO BLADDER RESIDUAL. PT TURNED THROUGHOUT THE NIGHT. SLEPT WELL. CALL LIGHT IN REACH AND BED ALARM ON.
[2017-05-29 08:16] VITALS: BP 130/72
--- NOTE | 2017-05-29 09:02 | NUR ---
Nutrition: Pt transfered up to Rehab unit. Wt has been fluctuating 160-162#. Today, wt is recorded as 180# - RD questioning accuracy. Please reweigh. Pt with CVA, one side weakness. Dysphagia/ aspiration - on Honey thick/Pureed diet. H/o COPD, ETOHism. K+ is 3.2. Low nutrition risk at this time. Will follow weekly for po intake, wt, labs.
--- NOTE | 2017-05-29 11:40 | NUR ---
INITIAL ASSESSMENT: PATIENT ADMITTED TO INPATIENT REHAB ON 05/28/17 WITH A DIAGNOSIS OF CVA WITH LEFT HEMIPARESIS. PATIENT INFORMS THAT PRIOR TO ADMISSION HE WAS INDEPENDENT AND ACTIVE. PATIENT RESID[facility] AT THE [facility] ON THE MAIN LEVEL. PATIENT USED A CANE FOR MOBILITY. PATIENT INFORMS CM THAT HE HAD NO TRANSPORTATION AND WOULD WALK TO [facility]. PATIENT INFORMS THAT IF HE NEEDS TO STAY WITH SOMEONE AT DISCHARGE THAT HE MAY BE ABLE TO STAY WITH HIS NEPHEW PEGGY PARRY, BUT DOES NOT HAVE HIS CONTACT INFO, BUT WILL GET IT FROM HIM WHEN HE COMES TO SEE HIM TOMORROW. PATIENT HAS NO HX OF OR SNF. CM ORIENTED PATIENT TO THE REHAB UNIT PROCESS, TEAM CONFRENCE MEETINGS, ROLE OF CM, AND PATIENTS RIGHTS AND RESPONSIBILITIES. PATIENT IN AGREEMENT AND HAS NO OTHER QUESTIONS OR CONCERNS AT THIS TIME. CM WILL REMAIN AVAILABLE TO ASSIST AND FOLLOW NEEDED.
--- NOTE | 2017-05-29 18:39 | NUR ---
ASSUMMED CARE OF PT AT 0730, PT ALERT, DYSPHASIC, TRANSFERS WITH MAX ASSIST OF 2, LEFT SIDED WEAKNESS, NEEDS ENCOURAGEMENT TO DRINK THICKENED LIQUIDS, APETITE GD, TAKES PILLS WELL IN APPLESAUCE, PT VOIDED SMALL AMOUNT OF URINE LESS THAN 50cC INCONTINENT X1, URINAL PLACED SEVERAL TIMES, NO FURTHER VOID, BLADDER SCANNED FOR 150CC, PT ENCOURAGED TO DRINK MORE FLUIDS, NO STOOLS THIS SHIFT, PT DENIES PAIN, PARTICIPATED IN ALL THERAPIES, HOURLY ROUNDING COMPLETED, REPOSITIONED EVERY 2 HOURS, ASSESSMENT COMPLETE, WILL CONTINUE TO MONITOR.
[2017-05-29 20:00] VITALS: BP 123/67
--- NOTE | 2017-05-29 20:25 | NUR ---
RESTING QUIETLY IN BED AND WATCHING TV. DENIES DISCOMFORT. ENCOURAGED PT TO CONSUME HONEY THICKENED APPLE JUICE WITHOUT SUCCESS. PT STATES NO URGE TO VOID. NO BLADDER DISTENTION NOTED. WILL CONTINTUE TO MONITOR.
--- NOTE | 2017-05-30 06:02 | NUR ---
PT DID DRINK A CONTAINER OF HONEY THICKENED APPLE JUICE INDEPENDENTLY. INCONTINENT OF URINE AT ABOUT 2300 RESULTING IN A TOTAL BED CHANGE. NEW GOWN PROVIDED WELL. ANDRIA CARE GIVEN. PT STATES UNABLE TO FEEL WHEN HE NEEDS TO VOID. SPEECH SLOW BUT EASILY UNDERSTOOD. ABLE TO MAKE NEEDS KNOWN WITH CUES. HOURLY ROUNDING IN PROGRESS.
[2017-05-30 08:00] VITALS: BP 143/79
--- NOTE | 2017-05-30 16:30 | NUR ---
FLORINA and Dr Martines met with pt to review team conference summary. Plan for pt to remain on rehab unit and for team to reteam during team conference on Tuesday 06/06. Pt in agreement with plan. SW to continue to follow and to follow up with pt family to confirm possible support system.
--- NOTE | 2017-05-30 19:02 | NUR ---
ASSUMED CARE AT 0730 PATIENT ALERT/ORIENTED, UP WITH MAX OF 2 THIS SHIFT. NO COMPLAINTS OF PAIN. ADVANCED TO MECHANICAL CHOPPED/HONEY THICK DIET. HOURLY ROUNDING COMPLETED, BED/CHAIR ALARMS IN PLACE. PARTICIPATED IN ALL THERAPIES TODAY. PILLS CAN BE GIVEN WHOLE IN PURRED FOOD, BUT PATIENT WAS HAVING TROUBLE SWALLOWING SO I CRUSHED THEM. POTASSIUM LOW AT 3.2 YESTERDAY, PROTOCOL INITIATED. PROVIGIL AND SSI TO START IN AM.
[2017-05-30 20:12] VITALS: BP 121/77
--- NOTE | 2017-05-31 01:31 | NUR ---
ASSUMED CARE @ 1944-05/30-SUN.SITTING IN TOILET W/ SAND MIXER OPERATOR WATCHING PATIENT. TRANAFERS W/ 2 PERSONS.HOB UP IN BED.BED ALARM PUT ON @ 1949.LUE UP ON A PILLOW WHILE IN BED.HAD SMALL BM IN TOILET.ANDRIA CARE DONE.WEARS PULL UPS. FLACCID-LEFT UE.WEAK-LEFT LE.MILD LEFT FACIAL DROOP.MILD SLURRING SPEECH. DYSPHAGIA.HS MEDS CRUSHED & MIXED W/ APPLE SAUCE FOLLOWED W/ HONEY THICK APPLE JUICE.SECOND DOSE K DUR 40 MEQ GIVEN @ 220.ON HOURLY ROUNDS.SEE POSITION CHANGE CHARTING.SAND MIXER OPERATOR DOING ODD HOUR ROUNDS.
--- NOTE | 2017-05-31 05:36 | NUR ---
SLEPT LATE & APPEARS SLEEPING SINCE 199.TOOK APPLE SAUCE W/ HONEY THICK APPLE JUICE W/ HS MEDS.BRP PER W/C X1 FOR BM.VOIDED @ 194 IN TOILET W/ BM.AK @ /MIN.AK CHECKED @ /MIN-REGULAR.
[2017-05-31 08:00] VITALS: BP 170/77
[2017-05-31 08:02] VITALS: BP 170/77
--- NOTE | 2017-05-31 19:06 | NUR ---
ASSUMED CARE AT 0730 PATIENT ALERT/ORIENTED, NO COMPLAINTS OF PAIN THIS SHIFT, PARTICIPATED IN ALL THERAPIES, TO DINING ROOM FOR MEALS. HOURLY ROUNDING COMPLETED, BED/CHAIR ALARMS IN PLACE, CALL LIGHT IN REACH
--- NOTE | 2017-05-31 20:15 | NUR ---
RESTING QUIETLY IN BED AND WATCHING TV. IN GOOD SPIRITS. PAIN MEDS GIVEN FOR C/O LEFT LEG PAIN. TOOK MEDS CRUSHED WITH APPLESAUCE FOLLOWED WITH HONEY THICKENED WATER. SPEECH SLIGHTLY SLURRED BUT UNDERSTANDABLE. ABLE TO MAKE NEEDS KNOWN WITHOUT DIFFICULTY. DEPENDS DRY.
[2017-05-31 20:18] VITALS: BP 131/72
--- NOTE | 2017-06-01 06:09 | NUR ---
INCONTINENT OF URINE X ONE. ANDRIA CARE GIVEN. RELIEF WITH LEFT LEG PAIN WITH IBUPROFEN. HOURLY ROUNDING IN PROGRESS.
[2017-06-01 08:00] VITALS: BP 125/74
--- NOTE | 2017-06-01 16:32 | NUR ---
ASSUMED CARE OF PATIENT AFTER MORNING REPORT. ALERT AND ORIENTED X4. ASSESSMENT COMPLETED AND CHARTED. VSS ON ROOM AIR. PATIENT UP, DRESSED AND GROOMED WELL THIS MORNING. WORKED WITH THERAPIES AND DID WELL. PATIENT HAD MEALS IN THE DINING ROOM, EATING AND DRINKING WELL ON THICKENED LIQUIDS. PATIENT TAKES MEDICATIONS CRUSHED WITH APPLESAUCE. NO COMPLAINTS OF NAUSEA OR SOA THIS SHIFT. PAIN HAS BEEN MINIMAL AND RELATED TO THERAPIES AND MANAGED WITH IBUPROFEN. PATIENT IS RESTING COMFORTABLY IN BED AT THIS TIME, CALL LIGHT IS WITHIN REACH AND HOURLY ROUNDS MAINTAINED. NURSING WILL CONTINUE TO MONITOR.
[2017-06-01 20:18] VITALS: BP 136/70
--- NOTE | 2017-06-02 01:51 | NUR ---
ASSUMED CARE @ 1939-06/01.AWAKE IN BED W/ HOB UP & LEFT UE UP ON A PILLOW.WEARS PULL UPS.HEELS OFF BED @ 1999.NO FACIAL DEVIATION NOTED.MILD SPEECH SLURRING PRESENT.LUE-FLACCID.LEFT LE-WEAK.DYSPHAGIA.BED ALARM PUT ON @ 1949.FED SELF @ 2044 W/ HS SNACK-APPLE SAUCE & HONEY THICK APPLE JUICE.SEE POSITION CHANGE CHARTING.ON HOURLY ROUNDS.FUEL HANDLER DOING ODD HOUR ROUNDS.
--- NOTE | 2017-06-02 05:13 | NUR ---
URINAL PLACED EVERY TIME PATIENT IS TURNED SINCE 0.BUT NO VOIDING YET. AWAKE EVERY TIME EVEN ROUNDS ARE MADE TO TURN PATIENT.TOOK ALL APPLE SAUCE & HONEY THICK APPLE JUICE HS SNACKS.
--- NOTE | 2017-06-02 07:01 | NUR ---
INC.URINE @ 0641.PULL UPS,SHIRT & BEDPAD ALL CHANGED.THIS IS ONLY VOIDING DURING NIGHT.URINE ACCIDENT X1.
[2017-06-02 07:38] VITALS: BP 130/75
--- NOTE | 2017-06-02 18:22 | NUR ---
ASSUMED CARE AT 0730 PATIENT ALERT/ORIENTED, UP WITH MAX 1-2, TYLENOL GIVEN X1 FOR LEFT ARM PAIN WITH GOOD RELIEF, PARTICIPATED IN ALL THERAPIES TODAY, TO DINING ROOM FOR MEALS, BED/CHAIR ALARMS IN PLACE, CALL LIGHT IN REACH, HOURLY RUONDING COMPLETED.
[2017-06-02 20:15] VITALS: BP 136/73
--- NOTE | 2017-06-03 00:32 | NUR ---
ASSUMED CARE @ 1944-06/02-SAT.AWAKE IN BED W/ HOB UP & ON HIS BACK.URINAL W/IN REACH.BED ALARM PUT ON @ 1944.PULL UPS REMOVED @ 2199.FED SELF W/ APPLE SAUCE & HONEY THICK APPLE JUICE FOR HS SNACKS @ 2009.SEE POSITION CHANGE CHARTING. AWAKENED ONLY TO TURN @ 2199 & 0000-06/03-SUNDAY.ON HOURLY ROUNDS.ELECTRIC DEICER INSPECTOR DOING ODD HOUR ROUNDS.LUE-SOME MOVEMENT.LEFT LE-WEAK.MILD SPEECH SLURRING PRESENT.
--- NOTE | 2017-06-03 05:29 | NUR ---
SLEEPING SINCE 0.SLEEPING BETTER.TOOK ALL APPLE SAUCE W/ HONEY THICK APPLE JUICE HS SNACKS.USED URINAL X1 BY SELF BUT SPILLED.2ND TIME USE URINAL- RN ASSISTED.INC.URINE X1.URINE ACCIDENTS X2.
[2017-06-03 07:28] VITALS: BP 138/83
--- NOTE | 2017-06-03 18:39 | NUR ---
ASSUMED CARE AT 0730 PATIENT ALERT/ORIENTED, C/O PAIN TO LEFT ARM, TYLENOL GIVEN THIS EVENING, TO DINING ROOM FOR MEALS. UP WITH MAX ASSIST OF 1-2 STAND/PIVOT WITH GAIT BELT TO W/C. SON VISITING. NEW NUMBER FOR CONTACT FOR SON THRU [place] (GIRLFRIEND) # [phone]. HOURLY ROUNDING COMPLETED. BED/CHAIR ALARMS IN PLACE, CALL LIGHT IN REACH
[2017-06-03 20:28] VITALS: BP 111/63
--- NOTE | 2017-06-04 01:02 | NUR ---
ASSUMED CARE @ 1929-06/03-SUN.AWAKE IN BED W/ HOB UP & LUE UP ON A PILLOW.HEELS ALREADY OFF BED @ 1929.ON HIS BACK.WATCHING TV.WEARS PULL UPS.BED ALARM PUT ON @ 1929.NOTED MOVES LEFT FINGERS & LEFT HAND SINCE YESTERDAY-06/02-SAT.SEE PAIN MANAGEMENT @ 2123.SEE POSITION CHANGE CHARTING.ON HOURLY ROUNDS.BANANA CARRIER DOING ODD HOUR ROUNDS.STILL WEAK-LEFT LE.MILD SPEECH SLURRING W/ DYSPHAGIA.AWAKENED ONLY TO TURN.
--- NOTE | 2017-06-04 05:42 | NUR ---
SLEEPING SINCE 2119.TOOK ALL APPLE SAUCE W/ HONEY THICK APPLE JUICE HS SNACKS.URINAL PLACED EVERY EVEN HOURS BEFORE TURNING BUT NO VOIDING YET @ 0545.FOUND DIAPHORETIC @ 020-06/04-SUNDAY.CHANGED SHIRT W/ HOSP.GOWN.NOTED ROOM THERMOSTAT @ 80 DEGREES.ROOM TEMP LOWERED.TURNED SELF ONCE DURING NIGHT.
--- NOTE | 2017-06-04 06:39 | NUR ---
URINAL PLACED @ 0620 W/ FAUCET RUNNING TO HELP VOID BUT UNABLE TO VOID.WILL TRY LATER.NO VOIDING FOR EDGER TAILER.
[2017-06-04 08:33] VITALS: BP 127/76
--- NOTE | 2017-06-04 15:17 | NUR ---
FLORINA called and spoke with Jessica at [phone] briefly and then she gave the phone to Alexis, pt son. (FLORINA has not heard anything or anymore about a nephew as was previously charted by ale HEATON.) FLORINA questioned pt dc plan and level of support available and pt son explained that they have officially beed "kicked out" of the [facility] due to bed bugs and pt not being able to take care of himself. Pt son said he was working on finding a place but with pt son being a felon and pt having "multiple repossessions" he was having a difficult time finding a place to live. SW to continue to follow to assist with safe dc planning.
--- NOTE | 2017-06-04 15:29 | NUR ---
ASSUMED CARE AT 0730. ALERT ORIENTED, PLEASANT COOPERATIVE. HX OF CVA L TREE. TRANSFERS WITH 2 ASSIST AND GAIT BELT FROM BED TO STAND AND INTO RECLINER. ABLE TO GET TO SITTING POSITION WITH MIN ASSIST FROM [place]. VOIDED X 1 PER URINAL AT BEGINNING OF SHIFT. PARTICIPATING IN THERAPIES. MEDICATED X 2 FOR C/O PAIN RT. UPPER EXTREMITY PER PT. REQUEST. FEEDS SELF TAKES MEDS CRUSHED IN APPLESAUCE. MECHANICAL ALTERED GROUND WITH HONEY LIQUIDS. USES CALL LIGHT APPROPRIATELY FOR ASSIST BED CHAIR ALARM FOR PT. SAFETY. PT. TOOK 1-1/2 HR. NAP AFTER LUNCH RESTED ON L SIDE.
[2017-06-04 19:59] VITALS: BP 103/49
--- NOTE | 2017-06-05 06:07 | NUR ---
ASSUMED CARES AT 1920. PT ALERT AND ORIENTED. PLEASANT. CVA WITH LEFT SIDED WEAKNESS. IS SHOWING MORE MOVEMENT WITH LEFT ARM/HAND. LEFT LEG IS WEAK. SLURRED SPEECH. DYSPHAGIA. TAKES PILLS CRUSHED IN APPLESAUCE. C/O PAIN TO LEFT ARM. TYLENOL GIVEN. PT ATTEMPTED TO USE URINAL X 2 BUT UNABLE TO. THIS AM PT HAD LARGE URINARY INCONTINENCE. STAFF ASSISTED WITH CLEANING AND CHANGING. PT SLEPT OFF AND ON. CALL LIGHT IN REACH AND BED ALARM ON.
[2017-06-05 07:30] VITALS: BP 117/56
--- NOTE | 2017-06-05 14:36 | NUR ---
ASSUMED CARE AT 0730. ALERT ORIENTED PLEASANT COOPERATIVE. HX OF CVA L SIDE WEAKNESS. TRANSFERS WITH G BELT CUES AND 2 ASSIST. UP IN RECLINER FOR BREAKFAST APPETITE GOOD FEEDS SELF ON ALTERED MECH GROUND DIET WITH HONEY LIQUIDS TAKES MEDS CRUSHED WITH APPLESAUCE. MEDICATED FOR PAIN L ARM WITH TYLENOL X 2 WITH PARTIAL RELIEF STATED. PARTICIPATED IN THERAPIES. APPETITE GOOD. USES CALL LIGHT APPROPRIATELY FOR ASSIST. BED CHAIR ALARM FOR PT. SAFETY.
--- NOTE | 2017-06-05 17:06 | NUR ---
SW met with pt son and pt son's girlfriend to discuss safe dc planning and follow up on conversation with pt son about pt son trying to find a place pt and pt son could live. Pt son provided conflicting information stating, "place him in a chcf" then "have him go somewhere but don't put him in a chcf". Pt son's girlfriend asked about senior housing and SW provided referral list for possible options and pt son's girlfriend noted she might be able to care for pt but that pt would need to be more independent in some self care. SW to continue to follow to assist with safe dc planning.
[2017-06-05 17:30] VITALS: BP 154/87
[2017-06-05 21:06] VITALS: BP 120/51
--- NOTE | 2017-06-06 05:16 | NUR ---
ASSUMED CARE AT 1920. PT ALERT AND ORIENTED. PLEASANT. CVA WITH LEFT SIDE WEAKNESS. C/O PAIN TO LEFT ARM. TYLENOL GIVEN. TAKES PILLS CRUSHED WITH APPLESAUCE AND HONEY THICK LIQUIDS. HE IS A MAX ASSIST X 2 PERSON. GAIT BELT. STAND AND PIVOT. ATTEMPTED TO USE URINAL TWICE AND COULDN'T VOID BUT THEN WAS ABLE TO THIS AM. WEARS PULLUPS. CAN AT TIMES BE INCONTINENT OF URINE. PT ADMITS TO SLEEPING VERY LITTLE. REFUSED SLEEP AID HE FEELS HE MAY BECOME INCONTINENT WHILE HE ASLEEP. USED CALL LIGHT APPROPRIATELY. BED ALARM ON. WILL CONTINUE TO MONITOR.
[2017-06-06 08:11] VITALS: BP 123/72
[2017-06-06 08:16] VITALS: BP 123/72
--- NOTE | 2017-06-06 15:57 | NUR ---
TEAM CONFRENCE MEETING HELD TODAY. CM SPOKE TO THE PATIENT TO INFORM OF MEETING AND PLAN TO RETEAM NEXT WEEK. PATIENT IN AGREEMENT. CM ALSO ATTEMPTED TO CONTACT PATIENT'S SON MOHSEN TO INFORM OF MEETING AND WAS UNABLE TO LEAVE A VOICEMAIL HIS VOICEMAIL BOX WAS FULL. PATIENT PROGRESSING TOWARDS GOALS, BUT BARRIERS ARE PUSHER SYNDROME, BALANCE, MOTOR PROCESSING DIFFICULTY, AND MEMORY. CM WILL REMAIN AVAILABLE TO ASSIST AND FOLLOW NEEDED.
--- NOTE | 2017-06-06 19:03 | NUR ---
ASSUMED CARE AT 0730 PATIENT ALERT/ORIENTED, UP WITH MAX ASSIST TO W/C, BED/CHAIR ALARMS IN PLACE TO DINING ROOM FOR MEALS. CALL LIGHT IN REACH, PARTICIPATED IN ALL THERAPIES TODAY. LIDOCAINE GEL TO LEFT ARM FOR PAIN AT SITE.
[2017-06-06 20:05] VITALS: BP 129/71
--- NOTE | 2017-06-07 01:41 | NUR ---
ASSUMED CARE @ 1932-.AWAKE IN BED WATCHING TV.HOB UP.LUE UP ON A PILLOW.BED ALARM PUT ON @ 1932.SEE PAIN MANAGEMENT @ 1949.SEE POSITION CHANGE CHARTING.HAS SOME MOVEMENT LEFT FINGERS & LEFT HAND.WEAK-LEFT LE.TURNED SELF TO LEFT SIDE @ -.ON HOURLY ROUNDS.BRASS WIND INSTRUMENTS TUBE BENDER DOING ODD HOUR ROUNDS.
--- NOTE | 2017-06-07 05:27 | NUR ---
SLEPT LATE @ 0000-06/07-SUNDAY.TOOK APPLE SAUCE W/ TYLENOL @ 1949 FOLLOWED W/ HONEY THICK ORANGE JUICE HS SNACKS.NO VOIDING YET SINCE ASSUMED CARE @ 193.URINAL PLACED 2X BUT NO URGE TO VOID.
--- NOTE | 2017-06-07 06:57 | NUR ---
USED URINAL W/ ASSIST @ 0615.THIS IS ONLY VOIDING DURING NIGHT.PULL UPS CHANGED BY INDUSTRIAL WASTE TREATMENT TECHNICIAN @ 1638.
[2017-06-07 07:43] VITALS: BP 121/67
[2017-06-07 20:09] VITALS: BP 145/78
--- NOTE | 2017-06-08 01:04 | NUR ---
ASSUMED CARE @ 1934-06/07-.BRP PER W/C W/ 2 PERSON ASSIST.PASSED GAS ONLY. ALREADY INC.URINE @ 1934 W/ URINE ACCIDENT.TRANSFERED TO BED @ 1949.HOB UP. HEELS OFF BED.BED ALARM PUT ON @ 1949.SEE PAIN MANAGEMENT @ 2013.ALL MEDS CRUSHED & MIXED W/ APPLE SAUCE.FED SELF APPLE SAUCE @ 2014-FOLLOWED W/HONEY THICK APPLE JUICE.RUE UP ON A PILLOW.SEE POSITION CHANGE CHARTING.ON HOURLY ROUNDS.AUTO BODY CUSTOMIZER DOING ODD HOUR ROUNDS.
--- NOTE | 2017-06-08 07:28 | NUR ---
SLEEPING SINCE 2099.BRP PER W/C X1-NO BM.INC URINE X3.URINE ACCIDENTS X3.ANDRIA CARE X3 AFTER URINE INC.USED URINAL W/ASSIST X2.LAST BM 06/03-SUNDAY.DULCOLAX SUP GIVEN @ 0430.SMALL AMOUNT FORMED STOOLS FELT WHEN SUP GIVEN RECTALLY. CALLED @ 4988.DIAPHORETIC & SHAKY.BP-158/87.ABLE TO TURN TO LEFT SIDE ON HIS OWN DURING NIGHT.TOOK ALL APPLE SAUCE W/ HONEY THICK APPLE JUICE HS SNACKS. MODERATE,FORMED & LARGE,SOFT STOOLS AFTER SUP GIVEN.PULL UPS APPLIED @ 9520.
[2017-06-08 10:28] VITALS: BP 121/75
--- NOTE | 2017-06-08 10:43 | NUR ---
SW tried to call pt family as OT requested for family to bring in pt a different option for shoes; pt just has big boots with him in the hospital. FLORINA called pt son via pt son's girlfriend Jessica at [phone] and left a detailed message. FLORINA tried to call other possible contact Ilana/friend at [phone] and there was no answer, no mailbox set up. FLORINA to continue to follow to assist with safe dc planning.
[2017-06-08 20:10] VITALS: BP 113/66
--- NOTE | 2017-06-08 21:00 | NUR ---
RESTING QUIELTY IN BED. DEPENDS DRY BUT SLIGHTLY SOILED WITH BM. ANDRIA CARE GIVEN. DENIES DISCOMFORT. COMMUNICATES VERBALLY WITH ENCOURAGEMENT. SPEECH QUIET BUT UNDERSTANDABLE. ABLE TO MAKE NEEDS KNOWN.
--- NOTE | 2017-06-09 05:23 | NUR ---
RESTED QUIETLY IN BETWEEN TURNS. INCONTINENT OF URINE X ONE. ANDRIA CARE GIVEN. HOURLY ROUNDING IN PROGRESS.
[2017-06-09 07:45] VITALS: BP 111/60
--- NOTE | 2017-06-09 15:05 | NUR ---
ASSUMED CARE AT 0730. ALERT ORIENTED, PLEASANT COOPERATIVE. HX OF CVA L SIDE WEAKNESS. TRANSFERS WITH 2 ASSIST G BELT CUES. SEEMS TO STIFFEN UP WITH TRANSFERS. UP IN W/C FOR MEALS. FEEDS SELF WITH SET UP ON ALTERED MECHANICAL GROUND DIET HONEY THICK LIQUIDS. TAKES MEDS CRUSHED IN APPLESAUCE. PT. PARTICIPATED IN THERAPIES THROUGHOUT THE DAY. MEDICATED WITH TYLENOL 2 TABS PO FOR L ARM PAIN. USES CALL LIGHT APPROPRIATELY FOR ASSIST, BED AND CHAIR ALARM FOR PT. SAFETY. ENCOURAGED MORE UP TIME TODAY IN RECLINER AND COMPLIED. INCONTIENT LARGE AMT. URINE THIS A.M. APPETITE GOOD.
[2017-06-09 16:15] VITALS: BP 104/59
[2017-06-09 20:00] VITALS: BP 98/51
--- NOTE | 2017-06-09 21:10 | NUR ---
ASSISTED TO SIDE OF BED WITH MAX ASSIST OF TWO. URINAL POSITIONED AND HELD BY STAFF. PATIENT UNABLE TO VOID. DENIES PAIN.
--- NOTE | 2017-06-10 05:38 | NUR ---
ASSISTED TO BEDSIDE COMMODE X ONE WITH MAX ASSIST OF TWO. PATIENT WAS ABLE TO VOID. NOT ABLE TO VOID PER URINAL. ASSISTED WITH REPOSITIONING THROUGHOUT THE NIGHT. HOURLY ROUNDING IN PROGRESS.
[2017-06-10 07:52] VITALS: BP 108/71
--- NOTE | 2017-06-10 15:53 | NUR ---
ASSUMED CARE AT 0730. ALERT ORIENTED PLEASANT COOPERATIVE, HX OF CVA WITH L SIDE WEAKNESS. TRANSFERS WITH 2 ASSIST PT. TENDS TO PUSH AGAINST STAFF WITH TRANSFERS TO THE RIGHT. LEGS ARE FAR APART NEEDS CUES TO STAND UP STRAIGHT WITH TRANSFERS. UP IN RECLINER AT INTERVALS TO INCREASE UP TIME. FEEDS SELF WITH SET UP MECH ALTERED DIET HONEY THICK LIQUIDS, CRUSH MEDS AND MIX WITH APPLESAUCE. VOIDED IN BSC X 2 PASSING GAS BUT NO BMS TODAY. USES CALL LIGHT APPROPRIATELY FOR ASSIST BED CHAIR ALARM FOR PT. SAFETY. APPETITE GOOD. MEDICATED X 2 FOR L ARM PAIN WITH MIN RELIEF NOTED.
[2017-06-10 20:00] VITALS: BP 114/66
--- NOTE | 2017-06-11 01:16 | NUR ---
ASSUMED CARE @ 1929-06/10-SUN.AWAKE IN BED & WANTS TO USE BSC.TRANSFERS W/ 2 PERSON ASSIST.PASSED GAS ONLY.HOB UP.LUE UP ON A PILLOW WHILE IN BED.HEELS OFF BED @ 1939.BED ALARM PUT ON @ 1939.WATCHING TV.PULL UPS OFF @ 1939.SEE POSITION CHANGE CHARTING.USED BSC 2ND TIME @ 2224.PASSED GAS ONLY.DRY BLOOD NOTED LEFT SIDE HEAD.CLEANSED W/ NS & NATHALY.AWAKENED ONLY TO TURN.ON HOURLY ROUNDS.SHELL SIEVE OPERATOR DOING ODD HOUR ROUNDS.SOME MOVEMENT LEFT FINGERS & LEFT HAND. DYSPHAGIA STILL PRESENT.
--- NOTE | 2017-06-11 05:41 | NUR ---
SLEEPING SINCE -06/11-SUNDAY.SLEPT LATE.USED BSC X2-PASSED GAS ONLY.USED URINAL X1 W/OUT SPILLS.TOOK ALL HONEY THICK ORANGE JUICE HS SNACK.
[2017-06-11 08:11] VITALS: BP 133/75
--- NOTE | 2017-06-11 14:34 | NUR ---
ASSUMED CARE AT 0730. ALERT ORIENTED PLEASANT COOPERATIVE. HX OF CVA L SIDE WEAKNESS. TRANSFERS WITH 2 PERSON ASSIST G BELT CUES FROM BED TO W/C. FEED[facility] SELF [facility] WITH HONEY THICK LIQUIDS CRUSH MEDS IN APPLESAUCE. MEDICATED WITH PRN IBUPROFEN FOR LUE PAIN WITH SOME RELIEF. USES CALL LIGHT APPROPRIATELY FOR ASSISTANCE. BED CHAIR ALARM FOR PT. SAFETY. HAS BEEN UP ALL MORNING PARTIPATING IN THERAPIES. TO DR FOR MEALS APPETITE GOOD.
[2017-06-11 20:39] VITALS: BP 114/62
--- NOTE | 2017-06-12 01:43 | NUR ---
ASSUMED CARE @ 1931-06/11-SUNDAY.APPEARS SLEEPING ON HIS LEFT SIDE.HOB UP.BED ALARM PUT ON @ 1931.URINAL W/IN REACH.SOME MOVEMENT PRESENT LEFT UE.DYSPHAGIA. HEELS OFF BED @ 2199.SEE POSITION CHANGE CHARTING.ON HOURLY ROUNDS.FIELD COIL WINDER DOING ODD HOUR ROUNDS.AWAKENED ONLY TO TURN.TURNS SELF TO LEFT @ NIGHT.
--- NOTE | 2017-06-12 05:12 | NUR ---
USED URINAL BY SELF X3.SPILLED URINE X2-URINE ACCIDENTS.ANDRIA CARE GIVEN AFTER URINE ACCIDENTS X2.SLEEPING SINCE 193.TOOK ALL APPLE SAUCE & HONEY THICK ICED TEA HS SNACKS.LAST BM-06/08-SUNDAY.PLAN TO GIVE PRN MOM W/ 0700 AM MEDS.HAD REACTION TO DUL SUP AFTER GIVEN 06/08.HAD SHAKINESS & DIAPHORESIS.
[2017-06-12 07:00] VITALS: BP 127/82
--- NOTE | 2017-06-12 09:36 | NUR ---
SW called to follow up with pt son and son's girlfriend about dc planning and discuss any concerns or questions in preparation for team conference Sunday. But no answer at [phone] for Jessica/Alexis and mailbox was full. [phone] is not accepting calls at this time. Other possible friend Ilana [phone] no answer and voicemail box not set up yet. SW spoke with pt who said that he has not seen any family or friends for a while and when asked about dc plan, pt said "I don't know". SW discussed possibility of prison/SNF with Medicare if pt would qualify to continue therapies and provide more time for pt to determine safe place to live and resources to assist in his care. Pt was agreeable and wants FLORINA to explore possible prison options. SW to continue to follow to assist with safe dc planning.
--- NOTE | 2017-06-12 16:25 | NUR ---
ASSUMMED CARE OF PT AT 0730, PT ALERT AND ORIENTED, TRANSFERS WITH ASSIST OF 2 GB, STAND AND PIVOT, NEEDS CUEING, LEANS TO SIDE, NEEDS CUEING, PT STATES HAS SOME LEFT SHOULDER PAIN BUT DENIES NEED FOR PAIN MEDICATION, PT TAKING FOOD AND HONEY THICK FLUIDS WELL, PT REPOSTIONED EVERY 2 HOURS IN CHAIR OR BED, PT VOIDS PER URINAL/TOILET, MEDS CRUSHED AND PLACED IN APPLESAUCE, PT PARTICIPATED IN ALL THERAPIES, HOURLY ROUNDING COMPLETED, ASSESSMENT COMPLETE, WILL CONTINUE TO MONITOR
--- NOTE | 2017-06-12 20:05 | NUR ---
RESTING QUIELTY IN BED AND WATCHING TV. PAIN MED GIVEN FOR C/O LEFT ARM PAIN RATED "7". TOOK MEDS CRUSHED WITH VANILLA PUDDING.
[2017-06-12 20:10] VITALS: BP 103/62
--- NOTE | 2017-06-13 05:16 | NUR ---
RESTED QUIETLY. NO FURTHER C/O PAIN. HOURLY ROUNDING IN PROGRESS.
[2017-06-13 08:30] VITALS: BP 125/58
--- NOTE | 2017-06-13 14:25 | PLAN ---
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 He is right hand dominant. Previous level of function was modified independent with activities of daily living. He did ambulate with a cane. Current level of function is minimum to maximum assistance of 1-2 depending on therapy, activity and time of day. He does have aphasia and dysphagia with impairment of comprehension, expression, social interaction, and problem solving. Medical prognosis is good. Rehabilitation prognosis is good. Provided he from drinking. Estimated length of stay is 12-14 days and discharge disposition is back to the [facility] he has been residing with assistance from his son. Multiple medical comorbidities requiring acute medical care. PT will see the patient 60-90 minutes per day, 5 days per week, working on upper and lower body strength, balance, coordination, and navigation. Occupational therapy will work with the patient 60-90 minutes per day, 5 days per week, working on upper and lower body strength, balance, coordination, navigation, bathing, dressing, and toileting. Speech and language pathology will work with the patient 60-90 minutes per day, 5 days per week, working on memory, cognition, aphasia, dysphagia, and likely VitalStim to advance his diet as tolerated and that will be 30-90 minutes per day, 5 days per week. This is an overall plan of care, may change from time to time. We will team weekly and make changes to plan of care as needed. <ELECTRONICALLY SIGNED> By: Leda Martines DO 06/13/17 1425 [id number] [id number] Martines DO /nt
--- NOTE | 2017-06-13 15:45 | NUR ---
Following for d/c planning needs. Reviewed chart and spoke with pt and pt's son re: team conference. Plan is for pt to be reteamed next week. Pt's son said he is looking for alternate housing for pt. Will remain available to assist as needed.
--- NOTE | 2017-06-13 17:49 | NUR ---
PATIENT IS UP IN WHEELCHAIR FOR DINNER. PATIENT IS UP WITH MAX ASSIST WITH LEFT SIDED WEAKNESS. PATIENT HAS HAD COMPLAINTS OF LEFT SHOULDER PAIN, IBUPROFEN GIVEN AND FLEXERIL STARTED FOR TONIGHT. PATIENT HAS GOOD APPETITE WITH MECH ALTERED DIET AND HONEY THICK LIQUIDS. PATIENT USES URINAL WITH ASSISTANCE. PATIENT DENIES ANY NEEDS AT THIS TIME. WILL CONTINUE TO MONITOR.
[2017-06-13 19:30] VITALS: BP 106/63
--- NOTE | 2017-06-14 05:54 | NUR ---
ASSESSMENT COMPLETE. PT SLEPT THROUGH THE NIGHT WITHOUT ANY CONCERNS. PT DENIES PAIN AND N/V. FLEXERIL STARTED TONIGHT FOR LEFT SHOULDER PAIN. PT IS ON ROOM AIR WITH ADEQAUATS SATS, VITALS STABLE. PT TAKES MED CRUSHED WITH SAQIB PUDDING. PT USED URINAL DURING THE NIGHT. Q2 TURN FOR SKIN INTEGRITY. PT IS UP MAX ASSIST WITH GAIT BELT AND WALKER. PT IS FALL RISK, BED ALARM ON. SEE ASSESSMENT AND VITALS FOR OTHER DETAILS. CALL LIGHT WITHIN REACH, WILL CONTINUE PLAN OF CARE
[2017-06-14 08:00] VITALS: BP 109/63
[2017-06-14 08:31] VITALS: BP 109/63
--- NOTE | 2017-06-14 19:01 | NUR ---
ASSUMED CARE THIS AM, A/O, MAX ASSIST OF 2 WITH TRANSFERS, RELUCTANT OF INDEPENDENCE. PATIENT BATHED, COMPLIANT WITH THERAPIES, SON DID VISIT TODAY, CALL LIGHT IN REACH, CONT POC.
[2017-06-14 20:00] VITALS: BP 117/64
--- NOTE | 2017-06-15 05:00 | NUR ---
PATIENT SLEPT WELL DURING THIS SHIFT. PT TAKES PILLS CRUSHED IN APPLESAUCE. PT WITH LEFT SIDED WEAKNESS. PT UP FROM RECLINER TO BED WITH MAX ASSIST OF TWO. PT VOIDS PER URINAL; ON OCCASSION PT WILL BE WET DUE TO MISSING URINAL. PT DENIES PAIN ON THIS SHIFT. FREQUENTLY USED ITEMS AND CALL LIGHT WITHIN REACH. SIDERAILS UPX3 AND BED ALARM ON. WILL CONTINUE TO MONITOR.
[2017-06-15 05:29] LABS: CALCIUM 8.7 mg/dL (8.5-10.1); CREATININE 0.8 mg/dL (0.6-1.3); MAGNESIUM 1.8 mg/dL (1.8-2.4); POTASSIUM 4.3 mmol/L (3.5-5.1)
[2017-06-15 07:00] VITALS: BP 132/78
--- NOTE | 2017-06-15 11:30 | NUR ---
SW faxed referrals to SNFs [facility] ph [phone] fx [phone] and [facility] ph [phone] fx [phone]. SW to continue to follow to assist with safe dc planning. Pt to be reteamed; pt length of stay 06/21.
--- NOTE | 2017-06-15 16:42 | NUR ---
RESUMED CARE THIS AM. A/O, COMPLIANT, LEFT SIDED TREE, MOD CONTRACTION TO LUE, LLE. DEFICIT DEXTERITY TO TO LEFT HAND, EXT ASSIST W/ GAIT BELT FOR TRANSFERS, STAND/PIVOT. TERESO DIET WELL, COMPLIANT WITH THERAPIES, PROGRESSING TOWARD GOALS, CONT POC.
[2017-06-15 20:04] VITALS: BP 108/71
--- NOTE | 2017-06-16 05:11 | NUR ---
PT SLEPT SOUNDLY DURING THE NIGHT, PLEASANT, UP MAX WITH TWO ASSIST AND WALKER/GAIT BELT FROM THE CHAIR BACK INTO BED LAST NIGHT, LEFT LEG WEAK AND DIFFICULTIES GETTING INTO BED, PRN PAIN MEDICATION FOR C/O LEFT ARM PAIN, INCONTINENT IN BRIEF, CALL LIGHT IN REACH, REMINDED TO TURN, BED ALARM ON FOR SAFETY, WILL CONTINUE TO MONITOR
[2017-06-16 07:30] VITALS: BP 116/70
--- NOTE | 2017-06-16 18:48 | NUR ---
ASSUMED CARE AT 0730 PATIENT ALERT/ORIENTED, FORGETFUL AT TIMES, UP WITH MAX OF ONE STAND/PIVOT. IBUPROFEN GIVEN FOR LEFT ARM PAIN, PARTICIPATED IN ALL THERAPIES, TO DINING ROOM FOR MEALS, CALL LIGHT IN REACH, HOURLY ROUNDING COMPLETED, BED/CHAIR ALARMS IN PLACE.
--- NOTE | 2017-06-16 19:35 | NUR ---
SITTING UP IN RECLINER WATCHING TV. PAIN MED GIVEN FOR C/O LEFT ARM PAIN RATED "7". TOOK MEDS CRUSHED WTIH APPLESAUCE FOLLOWED WITH HONEY THICKENED APPLE JUICE.
[2017-06-16 20:16] VITALS: BP 102/70
--- NOTE | 2017-06-17 05:43 | NUR ---
RESTED QUIETLY. NO FURTHER C/O PAIN. HOURLY ROUNDING IN PROGRESS.
[2017-06-17 08:46] VITALS: BP 136/80
--- NOTE | 2017-06-17 13:23 | NUR ---
ASSUMED CARE OF PT AT 0730. PT CONTINUES TO BE A&O CALM AND COOPERATIVE, PT VSS ON ROOM AIR. PT CONTINUES TO EXPERIENCE EXPRESIVE APHASIA AND LEFT SIDED HEMIPARESIS. PT CONT OF B&B AND HAS BEEN VOIDING VIA THE TOILET WITH 1 ASSIST AND A GAIT BELT. PT APPETITE IS GOOD HE ATE AROUND 75% OF BREAKFAST AND LUNCH. SKIN W/D/I. PT C/O LEFT SHOULDER AND ARM PAIN HAVE BEEN EFFETIVELY REDUCED TO TOLEABLE LEVELS WITH PO IBUPROFEN AND A LIDODERM PATCH APPLIED TO THE AREA. PT CURRENTLY RESTING IN RECLINER WITH HIS EYES CLOSED, BREATHING EVEN AND UNLABORED AT A NORMAL RATE AND DEPTH, NO APPARENT DISTRESS. NURSING WILL CONTINUE TO MONITOR.
[2017-06-17 19:00] VITALS: BP 107/60
--- NOTE | 2017-06-17 20:05 | NUR ---
RESTING QUIETLY IN BED LAYING ON LEFT SIDE. TURNS SELF IN BED. STATES LEFT ARM PAIN AT A "7". LIDODERM PATCH FROM LEFT SHOULDER REMOVED. PT GIVEN SCHEDULED FLEXERIL. ALSO ON SCHEDULED IBUPROFEN. VOIDS CLEAR/YELLOW URINE PER URINAL.
--- NOTE | 2017-06-18 05:11 | NUR ---
RESTED QUIETLY. USED URINAL X ONE DURING THE NIGHT. HOURLY ROUNDING COMPLETED.
[2017-06-18 08:07] VITALS: BP 116/70
--- NOTE | 2017-06-18 09:41 | NUR ---
FLORINA followed up with [facility], Ann, on referral for SNF. Ann reported that [facility] can accept pt for SNF upon dc. Hue with [facility] not certain if they will be able to accept pt. FLORINA called pt son Alexis who did not answer and FLORINA left a message to follow up on dc planning and requested a call back. SW to continue to follow to assist with safe dc planning/possible placement if pt son does not find safe place and assistance to provide care for pt.
--- NOTE | 2017-06-18 17:42 | NUR ---
A/O, DISCOMFORT TO LEFT SHOULDER MANAGED WELL WITH MEDICATION AND LIDOCAINE PATCH, COMPLIANT WITH MEDS AND CARES, WORKING WELL WITH THERAPY, SLOW TO PROGRESS, PLATEAU APPROACHING, VAGUE DISCUSSION OF DISCHARGE GOALS TO SKILLED UNIT, NOTHING CONFIRMED. CALL LIGHT IN REACH, CONT PLAN OF CARE.
--- NOTE | 2017-06-18 20:00 | NUR ---
SITTING UP IN RECLINER. ASSISTED FROM RECLINER TO BED WITH MAX ASSIST OF TWO, GAITBELT, STAND, PIVOT, CUEING, LIFTING. TOOK MEDS WHOLE WITH APPLESAUCE AND FOLLOWED WITH HONEY THICKENED APPLE JUICE. STATES LEFT SHOULDER PAIN AT A "2". SCHEDULED FLEXERIL GIVEN. ALSO ON SCHEDULED IBUPROFEN. LIDOCAINE PATCH FROM LEFT SHOULDER REMOVED.
[2017-06-18 21:22] VITALS: BP 106/65
--- NOTE | 2017-06-19 05:44 | NUR ---
RESTED QUIETLY. USED URINAL X ONE. GOOD PAIN RELIEF WITH SCHEDULED IBUPROFEN. TURNS SELF. HOURLY ROUNDING IN PROGRESS.
[2017-06-19 08:44] VITALS: BP 138/82
--- NOTE | 2017-06-19 14:47 | NUR ---
FLORINA and Dr Martines reviewed team conference summary with pt. Plan for pt to dc to SNF on 06/21. Pt in agreement with plan. SW returned to discuss dc planning in more detail. Pt expressed that he felt he really needed more therapy and wanted to go to [facility] for SNF from here. Pt said he hasn't heard from his family for a while and said since he still can't move/control his left side, he knew he needed more time until he might be able to be more independent. FLORINA called and spoke with Ann at [facility] and confirmed pt to admit to [facility] on . FLORINA called pt son Alexis to update about dc plan and review team conference as well at [phone] with no answer and voicemail box was full. FLORINA to continue to follow to assist with finalizing safe dc plan.
--- NOTE | 2017-06-19 17:57 | NUR ---
PT HAS WORKED WITH THERAPIES AND TRANSFERRS WITH 1 ASSIST, GAITBELT AND QUEING. PT HAS WEAKNESS TO LT ARM AND LEG. PT CALLS FOR ASSIST WITH TRANSFERRS.PT REPORTS LESS PAIN WITH USE OF LIDOCAIN PATCH AND SCHEDUALED IBUPROFIN.PT ABLE TO MAKE NEEDS KNOWN WITH GESTURES OR 1 WORD. PT HAS BEEN CONTINENT OF BLADDER WITH NO BM TODAY.PT CONTINUES TO PROGRESS TOWARDS GOALS AND HOURLY ROUNDING CONTINUES.
[2017-06-19 19:30] VITALS: BP 104/70
--- NOTE | 2017-06-20 05:11 | NUR ---
ASSUMED CARES AT 1915. PT ALERT AND ORIENTED. PLEASANT. CVA WITH LEFT HEMIPARESIS. IBUPROFEN GIVEN FOR LEFT SHOULDER PAIN. PILLS CRUSHED IN APPLESAUCE. HE IS A MAX ASSIST X 2 PERSON. GAIT BELT. STAND AND PIVOT. NEEDS MUCH CUEING TO STAND PROPERLY AND FOR CORRECT FOOT PLACEMENT. UP TO BATHROOM WHERE HE VOIDED AND HAD MODERATE BM. SLEPT WELL MOST OF THE NIGHT. CALL LIGHT IN REACH.
[2017-06-20 07:55] VITALS: BP 126/73
--- NOTE | 2017-06-20 17:43 | NUR ---
ASSUMED CARE AT 0730 PATIENT ALERT/ORIENTED, EXPRESSIVE APHASIA, BUT ABLE TO MAKE NEEDS KNOWN, SLURRED SPEACH, UP WITH MAX OF ONE AND GAIT BELT. TO DINING ROOM FOR MEALS, IBUPROFEN GIVEN SCHEDULED FOR LEFT ARM PAIN, PARTICIPATED IN ALL THERAPIES TODAY, BED/CHAIR ALARMS IN PLACE, CALL LIGHT IN REACH, HOURLY ROUNDING COMPLETED.
[2017-06-20 20:11] VITALS: BP 119/69
[2017-06-21 00:47] VITALS: BP 119/69; BP 127/68
[2017-06-21] MEDS ORDERED: FLEXERIL PO (01:06)
[2017-06-21] MEDS ORDERED: IBUPROFEN 400400 M2 PO (01:07)
[2017-06-21] MEDS ORDERED: LIDODERM1 EACH TOP (01:09)
[2017-06-21] MEDS ORDERED: ENOXAPARIN30 MG/0.1 SUBQ (01:20)
[2017-06-21] MEDS ORDERED: MELATONIN5 M1 PO (01:21)
[2017-06-21] MEDS ORDERED: GABAPENTIN 100100 MG PO (01:23)
[2017-06-21] MEDS ORDERED: PROVIGIL 200 M200 M1 PO (01:25)
[2017-06-21] MEDS ORDERED: TYLENOL325 MG PO (01:28)
[2017-06-21] MEDS ORDERED: SERTRALINE HCL50 MG PO (01:30)
--- NOTE | 2017-06-21 05:08 | NUR ---
ASSUMED CARES AT 1920. PT ALERT AND ORIENTED. CALM AND COOPERATIVE. TAKES PILLS WHOLE IN PUDDING. IBUPROFEN GIVEN FOR LEFT SHOULDER PAIN. PT USED URINAL AND STAFF EMPTIED. WEARS PULLUPS. SLEPT MOST OF THE NIGHT. CALL LIGHT IN REACH AND BED ALARM ON.
[2017-06-21 08:07] VITALS: BP 127/68
[2017-06-21 08:58] VITALS: BP 127/68
--- NOTE | 2017-06-21 10:01 | NUR ---
Pt to dc today, 06/21, to [facility] ph [phone] fax [phone]. FLORINA called Ann with admissions at [facility] who arranged ride for bw 13:30 to 14:00. FLORINA called and spoke with pt son Alexis at [phone] to inform of pt dc plan for today.
--- NOTE | 2017-06-21 13:52 | NUR ---
PT TO [facility] PER THEIR TRANSPORTATION, W/C. PT REMAINS ALERT AND ORIENTATED AND ABLE TO VOICE NEEDS. PT FEEDS SELF AND HAS HAD VIDEO SWALLOW THIS AM AND IS UPGRADED TO NECTOR LIQUIDS AND MEDICATIONS GIVEN WHOLE IN PUREE. REPORT CALLED TO [facility].PT HAS HAD BM BEFORE LEAVING.PT DISCHARGED WITH ALL BRLONGINGS.
--- NOTE | 2017-07-10 15:20 | H ---
[address] [address] HISTORY AND PHYSICAL Name: TATIANA ROCA Room: [address] IN .KarelRaghu#: [id number] Admission: 05/28/17 Attend Phys: Leda Martines, Discharge: 06/21/17 Date of : 59 Report #: [id number] THIS REPORT FOR: //name// CC: EMELIA physician/PCP Leda Martines DATE OF SERVICE: 05/28/2017 HISTORY OF PRESENT ILLNESS: This is a 62-year-old male admitted to inpatient rehabilitation to facilitate safe discharge home, status post acute hospitalization at [facility] starting on 05/21/2017 with symptoms of left facial droop, left-sided weakness, aphasia and dysphagia, diagnosed with a right parietal occipital cerebrovascular accident. He currently resides in a hotel with his son who does provide some support. He is generally independent with most activities of daily living, but was ambulating with a cane. Current level of function is minimum assistance to maximum assistance of 1-2 depending on therapy, activity and time of day. He does have impairment of comprehension, expression, social interaction, problem solving and memory and is at risk for aspiration due to his dysphagia. No significant changes since the preadmission screening. Estimated length of stay is 12-14 days with discharge disposition back to the previous setting with son. No changes since the preadmission screening as well as multiple medical comorbidities requiring daily medical care. PAST MEDICAL HISTORY: Cerebrovascular accident with left hemiparesis, aphasia and dysphagia, alcoholism, cytopenia, COPD, TIA, weakness, anemia, and pancreatitis. ALLERGIES: No known drug allergies. MEDICATIONS: Reviewed, reconciled and are available in the MAR. SOCIAL HISTORY: Alcohol, at least 6 beers daily. No tobacco and no illicit drug use. FAMILY HISTORY: Heart disease. REVIEW OF SYSTEMS: A 14-point review of systems was done today, was negative except as mentioned in HPI, specifically no fever, chest pain, shortness of breath, abdominal pain or distention. PHYSICAL EXAMINATION: GENERAL: Alert, oriented, in no apparent distress. VITAL SIGNS: Reviewed and are stable. HEENT: Atraumatic, normocephalic. Pupils are equal, round, reactive. ABDOMEN: Soft, nontender, [place] [address] HISTORY AND PHYSICAL Name: TATIANA ROCA Room: [address]#: [id number] Admission: 05/28/17 Attend Phys: Leda Martines, DO Discharge: 06/21/17 Date of : 59 Report #: [id number] NEUROLOGIC: Cranial nerves 2-12 are grossly intact. No focal neuro deficits. He does have left upper and lower extremity hemiparesis, 3/5 strength and 5/5 strength in the right upper and lower extremity. He does have word finding difficulties and memory changes, aphasia and dysphagia. ASSESSMENT: 1. Right parietooccipital cerebrovascular accident. 2. History of alcoholism. 3. Cytopenia. 4. Chronic obstructive pulmonary disease. 5. Weakness. 6. Anemia. 7. History of pancreatitis. 8. Aphasia and dysphagia. PLAN: 1. Admission to inpatient rehabilitation to facilitate safe discharge home. 2. PT, OT, speech, language, case management, nursing and HIMS to make evaluations and recommendations. 3. Plan of care is pending and will team him weekly. 4. Laboratories on the day after admission. <ELECTRONICALLY SIGNED> By: Leda Martines DO 07/10/17 1520 1418 1435Leda Martines DO /nt
--- NOTE | 2017-07-10 15:21 | D ---
[facility] [address] [place] [address] DISCHARGE SUMMARY Name: TATIANA ROCA Room: [address] IN [facility].#: [id number] Admission: 05/28/17 Attend Phys: Leda Martines DO Discharge: 06/21/17 Date of : 59 Report #: [id number] THIS REPORT FOR: //name// CC: [facility] physician/PCP Leda Martines DATE OF SERVICE: 06/21/2017 DISCHARGE DIAGNOSIS: Cerebrovascular accident. DISPOSITION: Discharge is to skilled level of care on 06/21/2017 for continued rehabilitation. He is a full code. He has fair rehabilitation potential. He has evaluation and treatment for physical and occupational therapy as well as speech and language pathology. 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 CBC and CMP after admission as he did have discrepancies in his potassium and his magnesium and was on a protocol here for those replacements. Neuro follow up in about 3 weeks, primary care in 1 week after discharge. Video swallow was done on day of discharge ____, results are pending, but that will establish his most recent diet. MEDICATIONS: Reviewed, reconciled by myself and are available in the MAR. DISCHARGE PHYSICAL EXAMINATION: GENERAL: Alert, oriented, in no apparent distress. VITAL SIGNS: Reviewed and are stable. HEENT: Head atraumatic, normocephalic. Pupils equal, round, reactive. ABDOMEN: Soft, nontender, nondistended. NEUROLOGIC: Cranial nerves 2 through 12 are grossly intact. No focal neuro deficits. There is some left facial droop, but it is improved and some left upper and lower extremity hemiparesis, although that is also improved. SKIN: Warm and dry. No rashes or lesions noted. <ELECTRONICALLY SIGNED> By: Leda Martines DO 07/10/17 1521 1457 2034Leda Martines DO /nt
== END 2017-06-21 14:16 | DRG 64 ==
LOC: M.REH 13:53
PROVIDERS: Internal Medicine; ADMIT Physical Medicine & Rehabilitation
DX: I63.9 Cerebral infarction, unspecified (principal); G93.40 Encephalopathy, unspecified; G81.94 Hemiplegia, unspecified affecting left nondominant side; R47.01 Aphasia; R13.10 Dysphagia, unspecified; R29.810 Facial weakness; J44.9 Chronic obstructive pulmonary disease, unspecified; D64.9 Anemia, unspecified; D75.9 Disease of blood and blood-forming organs, unspecified; I48.91 Unspecified atrial fibrillation; F17.200 Nicotine dependence, unspecified, uncomplicated; F10.10 Alcohol abuse, uncomplicated; Z82.49 Family history of ischemic heart disease and other diseases of the circulatory system

== ENCOUNTER 2018-03-04 11:37 | Emergency (ER) | payer MEDICARE ==
[~2018-03-04] VITALS: Ht 175.3 cm; Wt 90.7 kg
[~2018-03-04 11:37] MED LIST changes: +ASPIR 8181 M1 PO; +CARVEDILOL3.125 MG PO; +ENOXAPARIN30 MG/0.1 SUBQ; +FLEXERIL PO; +GABAPENTIN 100100 MG PO; +IBUPROFEN 400400 M2 PO; +LIDODERM1 EACH TOP; +LIPITOR 40 MG T40 M1 PO; +MELATONIN5 M1 PO; +PLAVIX 75 MG TA75 M1 PO; +PROVIGIL 200 M200 M1 PO; +SERTRALINE HCL50 MG PO; +TYLENOL325 MG PO; +VITAFOL-OB+DHA1 EACH PO; +VITAMIN B-1100 M1 PO
[2018-03-04] MEDS ORDERED: VITAMIN B-1100 M1 PO (11:54)
[2018-03-04] MEDS ORDERED: CLARITIN10 MG PO (11:54)
[2018-03-04] MEDS ORDERED: VENTOLIN HFA 1818 GM INH (11:55)
[2018-03-04] MEDS ORDERED: TUMS PO (11:56)
[2018-03-04] MEDS ORDERED: PREDNISONE 10 M10 MG PO (11:57)
[2018-03-04] MEDS ORDERED: ROBITUSSIN100 MG/53 PO (11:57)
[2018-03-04 12:21] LABS: HEMOGLOBIN 13.7 gm/dL (14.0-18.0); MCH 29.8 pg (26.0-34.0); MCHC 33.5 g/dL (28.0-37.0); MPV 7.5 fl. (7.2-11.1); NUCLEATED RBCS 0 /100WBC; PLATELET COUNT* 273 thou/uL (150-400); RBC 4.61 mil/uL (4.50-6.00); RDW-CV 15.8 % (10.5-14.5); WBC 10.7 thou/uL (4.0-11.0)
[2018-03-04 12:31] LABS: CALCIUM 9.1 mg/dL (8.5-10.1); CREATININE 1.1 mg/dL (0.6-1.3)
[2018-03-04 12:35] LABS: ALBUMIN 3.5 g/dL (3.4-5.0); TOTAL BILIRUBIN 0.5 mg/dL (<0.1-1.0)
[2018-03-04 12:50] LABS: ABSOLUTE EOSINOPHILS 0.1 thou/uL (0.0-0.7); ABSOLUTE MONOCYTES 0.4 thou/uL (0.0-1.2); ABSOLUTE NEUTROPHILS 9.2 thou/uL (1.6-8.1); ANISOCYTOSIS 1+; PLATELET ESTIMATE ADEQUATE; POIKILOCYTOSIS 1+
[2018-03-04 14:13] VITALS: BP 142/97
--- NOTE | 2018-03-04 15:55 | EKG ---
[place] [address] ELECTROCARDIOGRAM REPORT Name: TATIANA ROCA Room: [facility]#: [id number] Admission: 03/04/18 Attend Phys: Discharge: 03/04/18 Date of : 59 Report #: [id number] THIS REPORT FOR: //name// [facility] ED Test Date: 2018-03-04 Test Time: 13:18:23 Pat Name: TATIANA ROCA Department: Room: Gender: M Insurance Processing Clerk: ULI : 1955 Requested By: Elise Stanton Order Number: [id number] MD: Noe Pena Measurements Intervals [place] Rate: 99 P: 62 [place]: 188 QRS: -27 QRSD: 99 T: 42 QT: 369 QTc: 474 Interpretive Statements Sinus rhythm Borderline left axis deviation Abnormal R-wave progression, early transition Compared to ECG 05/21/2017 06:43:41 No significant changes Electronically Signed On 03-04-2018 15:54:55 PANEL WIRER by Noe Pena [email or web address] <ELECTRONICALLY SIGNED> By: Noe Pena MD, [facility] 03/04/18 1554 1318 1318 Noe Pena MD, [facility] /EPI
== END 2018-03-04 14:16 | disposition home or self-care (01) ==
LOC: M.ERS 11:37
PROVIDERS: Physician Assistant
DX: Z71.1 Person with feared health complaint in whom no diagnosis is made (principal); I10 Essential (primary) hypertension; I48.91 Unspecified atrial fibrillation; J44.9 Chronic obstructive pulmonary disease, unspecified; Z86.73 Personal history of transient ischemic attack (TIA), and cerebral infarction without residual deficits; F17.200 Nicotine dependence, unspecified, uncomplicated

== ENCOUNTER 2020-11-04 15:36 | Inpatient (IN) | payer MEDICARE, MEDICAID ==
[~2020-11-04] VITALS: Ht 182.9 cm; Wt 88.3 kg
[~2020-11-04 15:36] MED LIST changes: +CLARITIN10 MG PO; +PREDNISONE 10 M10 MG PO; +ROBITUSSIN100 MG/53 PO; +TUMS PO; +VENTOLIN HFA 1818 GM INH
[2020-11-04] MEDS ORDERED: ELIQUIS5 MG PO (15:38)
[2020-11-04] MEDS ORDERED: LIPITOR 20 MG T20 M1 PO (15:38)
[2020-11-04] MEDS ORDERED: BIOFREEZE118 ML TOP (15:38)
[2020-11-04] MEDS ORDERED: PULMICORT0.25 MG/2 INH (15:39)
[2020-11-04 15:40] VITALS: BP 130/78
[2020-11-04] MEDS ORDERED: CARVEDILOL25 MG PO (15:40)
[2020-11-04] MEDS ORDERED: CHILDREN'S ZYRT10 M1 PO (15:40)
[2020-11-04] MEDS ORDERED: FLONASE 0.05%50 MCG NARES (15:41)
[2020-11-04] MEDS ORDERED: D3-501250 MCG PO (15:41)
[2020-11-04] MEDS ORDERED: NEURONTIN 300M300 M2 PO (15:42)
[2020-11-04] MEDS ORDERED: PROTONIX40 M2 PO (15:43)
[2020-11-04] MEDS ORDERED: SENNA PLUS TAB1 EACH PO (15:43)
[2020-11-04] MEDS ORDERED: IPRAT-ALBUT 0.5-3 ML INH (15:43)
[2020-11-04] MEDS ORDERED: VENTOLIN HFA 1818 GM INH (15:44)
[2020-11-04] MEDS ORDERED: TRAMADOL 50 MG50 MG PO (15:44)
[2020-11-04 16:17] LABS: ABSOLUTE BASOPHILS 0.1 thou/uL (0.0-0.2); ABSOLUTE EOSINOPHILS 0.4 thou/uL (0.0-0.7); ABSOLUTE LYMPHOCYTES 1.3 thou/uL (0.8-5.3); ABSOLUTE MONOCYTES 0.6 thou/uL (0.0-1.2); ABSOLUTE NEUTROPHILS 2.4 thou/uL (1.6-8.1); BASOPHILS 1.2 %; HEMATOCRIT 42.8 % (42.0-52.0); HEMOGLOBIN 14.7 gm/dL (14.0-18.0); LYMPHOCYTES 27.3 %; MCH 31.3 pg (26.0-34.0); MCHC 34.2 g/dL (28.0-37.0); MCV 91.4 fL (80.0-100.0); MONOCYTES 12.5 %; MPV 7.6 fl. (7.2-11.1); NUCLEATED RBCS 0 /100WBC; PLATELET COUNT* 238 thou/uL (150-400); RBC 4.68 mil/uL (4.50-6.00); RDW-CV 13.1 % (10.5-14.5); WBC 4.8 thou/uL (4.0-11.0)
[2020-11-04 16:22] LABS: CALCIUM 9.1 mg/dL (8.5-10.1); POTASSIUM 4.4 mmol/L (3.5-5.1)
[2020-11-04 16:32] LABS: ALBUMIN 3.7 g/dL (3.4-5.0); MAGNESIUM 1.8 mg/dL (1.8-2.4); TOTAL BILIRUBIN 0.6 mg/dL (<0.1-1.0); TOTAL PROTEIN 6.8 g/dL (6.4-8.2)
[2020-11-04 18:10] VITALS: BP 133/103
--- NOTE | 2020-11-04 19:15 | NUR ---
[address] DANGELO AND NOTIFIED OF PT STATUS, RECEIVED NEW ORDERS
--- NOTE | 2020-11-04 19:17 | NUR ---
1814 PT STATUS CHANGE O2 SAT DECREASED FROM 96% TO 75%, FACE RED, PT COUGHING, LABORED BREATHING PLACED PT ON 1OL OXYGEN AND O2 STEADILY CAME BACK TO 91% RT WAS CALLED FOR ORDERED BREATHING TX AFTER BREATHING TX, PT STATES HE DID NOT FEEL ANY BETTER PT WAS STILL HAVING LABORED BREATHING 25-30 BREATHS PER MINUTE PT O2 SAt 91% on 5LITERS OF O2 PT INCREASED HIS LABORED BREATHING TO 32-[address] PINA [address] DANGELO NOTIFIED OF PT STATUS RT PLACED PT ON BIPAP PT LABORED BREATHING DECREASED TO 25 BREATHS PER MINUTE AND O2 SATURATIONS INCREASED TO 96% [address] VIA STRETCHER WITH RN, RT, WELFARE WORKER WITH CARDIAC MONITORING, NIBP MONITORING, O2 SAT MONITORING IN PLACE. RT AID IN TRANSFERRING BIPAP MACHINE. PT TOLERATING ACTIIVITY OF CT FAIR. [address] TO RM 16 WITHOUT DIFFICULTY, PT O2 SAT 99% ON BIPAP, RESPIRATIONS 22. PT SEEMS TO BE MORE ANXIOUS AT THIS TIME. 1899 GAVE FULL NURSING REPORT TO IMKAYLA RAE RN WITH VERBALIZED UNDERSTANDING
--- NOTE | 2020-11-04 19:35 | NUR ---
UPDATED REPORT CALLED TO [facility] ON TELEMTRY UNIT. PATIENT TAKEN TO UNIT AFTER SPEAKING TO DR. DANGELO. PATIENT IS ALERT AND ORIENTED X4, VITAL SIGNS ARE STABLE. PATIENT TAKEN OFF BIPAP PER DR. DANGELO AND PUT ON 3L NC FOR TRANSPORT TO UNIT.
[2020-11-04 20:00] VITALS: BP 116/92
[2020-11-05 01:15] VITALS: BP 130/76
[2020-11-05 04:51] VITALS: BP 91/56
[2020-11-05 05:06] LABS: BE 0.4 mmol/L (-2 to +3); PCO2 39.9 mmHg (35.0-45.0); PO2 80.9 mmHg (75.0-100.0); pH 7.414 (7.340-7.450)
[2020-11-05 08:27] LABS: HEMATOCRIT 40.7 % (42.0-52.0); MCH 31.4 pg (26.0-34.0); MCHC 34.3 g/dL (28.0-37.0); MCV 91.7 fL (80.0-100.0); MPV 7.9 fl. (7.2-11.1); RBC 4.44 mil/uL (4.50-6.00); RDW-CV 13.5 % (10.5-14.5); WBC 5.6 thou/uL (4.0-11.0)
[2020-11-05 09:19] LABS: CALCIUM 9.1 mg/dL (8.5-10.1)
[2020-11-05 09:20] VITALS: BP 100/57
--- NOTE | 2020-11-05 09:37 | EKG ---
[place] [address] ELECTROCARDIOGRAM REPORT Name: TATIANA ROCA Room: [address] ADM IN .R.#: [id number] Admission: 11/04/20 Attend Phys: Madhav Bolanos Discharge: Date of : 59 Date of Service: 11/04/20 1546 Report #: [id number] THIS REPORT FOR: //name// [facility] ED Test Date: 2020-11-04 Test Time: 15:46:33 Pat Name: TATIANA ROCA Department: Room: [facility] Gender: M Pattern Perforating Machine Operator: ROSANGELA : 1955 Requested By: Reinier Esteves Order Number: [id number] MD: Juan Pathak Measurements Intervals [place] Rate: 65 P: 22 [place]: 207 QRS: 18 QRSD: 95 T: 33 QT: 407 QTc: 424 Interpretive Statements Sinus rhythm Abnormal R-wave progression, late transition Borderline T abnormalities, anterior leads Minimal ST elevation, inferior leads Compared to ECG 03/04/2018 13:18:[address]-T alterations have occurred and artifact is noted Electronically Signed On 11-05-2020 9:37:48 CDT by Juan Pathak [email or web address] <ELECTRONICALLY SIGNED> By: Juan Pathak MD, [facility] 11/05/20 0937 1546 1546 Juan Pathak MD, [facility] /EPI
--- NOTE | 2020-11-05 10:30 | NUR ---
CHANCE COMPLETED INITIAL ASSESSMENT WITH PT AND ADMISSION COORDINATOR AT [facility], [facility]. PT HAS DIFFICULTY SPEAKING AND CAN BE DIFFICULT TO UNDERSTAND D/T "MULTIPLE STROKES"/PER VALENTIN. PT IS W/C BOUND, BUT DOES NOT NEED CHRISTIE LIFT. PT HAS BEEN LIVING IN THE [facility] FOR OVER 4/5 YRS. NUMBERS FOR [facility] AND [facility] ARE DISCONNECTED. CHANCE LFT VM FOR PT'S NEPHEW, PEGGY. VALNET[facility] CAN PROVIDE TRANSPORTATION, D/C ORDERS NEED TO BE FAXED.
--- NOTE | 2020-11-05 10:50 | 2DMMODE ---
[place] [address] 2 D/M-MODE ECHOCARDIOGRAM Name: TATIANA ROCA Room: [address] IN [facility]#: [id number] Admission: 11/04/20 Attend Phys: Madhav Bolanos Discharge: Date of : 59 Date of Service: 11/05/20 1049 Report #: [id number] THIS REPORT FOR: cc: Madhav Bolanos,Madhav Coulter,Juan Cazares MD [facility] ~ APPROVED REPORT Study performed: 11/05/2020 09:53:23 EXAM: Comprehensive 2D, Doppler, and color-flow Echocardiogram Patient Location: In-Patient Room #: [facility] Status: routine BSA: 2.12 HR: 65 bpm BP: 100/58 mmHg Rhythm: NSR Other Information Technically limited study due to patient could not tolerate procedure. Apical views only view obtainable.. Indications Chest Pain Volumes Left Atrial Volume (Systole) LA ESV Index: 17.20 mL/m2 Aortic Valve AoV Peak Guilherme.: 1.13 m/s AO Peak Gr.: 5.09 mmHg LVOT Max P.21 mmHg AO Mean Gr.: 2.79 mmHg LVOT Mean P.23 mmHg LVOT Max V: 0.74 m/s AO V2 VTI: 23.57 cm LVOT Mean V: 0.52 m/s LVOT V1 VTI: 15.71 cm Mitral Valve E/A Ratio: 1.28 MV Decel. Time: 219.63 ms MV E Max Guilherme.: 0.65 m/s MV PHT: 63.69 ms MVA (PHT): 3.45 [place] [address] 2 D/M-MODE ECHOCARDIOGRAM Name: TATIANA ROCA Room: [address] IN [facility].#: [id number] Admission: 11/04/20 Attend Phys: Madhav Bolanos Discharge: Date of : 59 Date of Service: 11/05/20 1049 Report #: [id number] Left Ventricle The left ventricle is normal size. There is normal LV segmental wall motion. There is normal left ventricular wall thickness. Left ventricular systolic function is normal. The left ventricular ejection fraction is within the normal range. LVEF is 55-60%. Right Ventricle The right ventricle is normal size. The right ventricular systolic function is normal. Atria The left atrium size is normal. The right atrium size is normal. Aortic Valve The aortic valve is normal in structure. No aortic regurgitation is present. There is no aortic valvular stenosis. Mitral Valve The mitral valve is normal in structure. There is no mitral valve regurgitation noted. No evidence of mitral valve stenosis. Tricuspid Valve The tricuspid valve is normal in structure. Unable to assess PA pressure. Trace tricuspid regurgitation. Pulmonic Valve Pulmonic valve is not well visualized. Great Vessels The aortic root is normal in size. IVC is not well visualized. Pericardium There is no pericardial effusion. <Conclusion> The left ventricle is normal size. There is normal left ventricular wall thickness. Left ventricular systolic function is normal. The left ventricular ejection fraction is within the normal range. LVEF is 55-60%. The right ventricle is normal size. The left [place] [address] 2 D/M-MODE ECHOCARDIOGRAM Name: TATIANA ROCA Room: [address] IN .R.#: [id number] Admission: 11/04/20 Attend Phys: Madhav Bolanos Discharge: Date of : 59 Date of Service: 11/05/20 1049 Report #: [id number] The aortic valve is normal in structure. The mitral valve is normal in structure. The tricuspid valve is normal in structure. There is no pericardial effusion. There is normal LV segmental wall motion. <ELECTRONICALLY SIGNED> By: Juan Pathak MD, [facility] 11/05/20 1049 1049 1049 Juan Pathak MD, FACC /INF
--- NOTE | 2020-11-05 11:28 | NUR ---
ASSUME CARE OF PATIENT AT 1040. SITTING IN CHAIR.
[2020-11-05 12:23] VITALS: BP 98/60
--- NOTE | 2020-11-05 14:06 | NUR ---
1400- PATIENT DISCHARGED TO [facility]. PRIOR TO DISCHARGE REPORT GIVEN TO LUNA SANCHEZ LPN. UPON DISCHARGE PATIENT ALERT AND ORIENTED X3 AND AT HIS BASELINE NEUROLOGICALLY AND VSS.
== END 2020-11-05 14:00 | DRG 189 ==
LOC: M.ERS 15:36 → M.TBA-ER 17:22 → M.2W 19:35
PROVIDERS: Emergency Medicine Emergency Medical Services; Family Medicine; ADMIT Internal Medicine; ATTEND Internal Medicine
DX: J96.01 Acute respiratory failure with hypoxia (principal); J44.1 Chronic obstructive pulmonary disease with (acute) exacerbation; R07.89 Other chest pain; Z20.822 Contact with and (suspected) exposure to COVID-19; I10 Essential (primary) hypertension; J44.9 Chronic obstructive pulmonary disease, unspecified; G62.9 Polyneuropathy, unspecified; I48.0 Paroxysmal atrial fibrillation; K21.9 Gastro-esophageal reflux disease without esophagitis; Z79.82 Long term (current) use of aspirin; Z79.899 Other long term (current) drug therapy; Z86.73 Personal history of transient ischemic attack (TIA), and cerebral infarction without residual deficits